=== PATIENT | female | born 1960 | race African-American/Black ===

== ENCOUNTER 2017-07-16 15:57 | Inpatient (IN) | payer BC ==
[~2017-07-16] VITALS: Ht 167.6 cm; Wt 102.1 kg
[2017-07-16 16:25] VITALS: BP 147/98; PULSE 91; RESP 19; TEMP 98; O2SAT 100
[2017-07-16] MEDS ORDERED: TIRO25CA PO (16:53)
--- NOTE | 2017-07-16 17:38 | PD ---
HPI Chief Complaint: Fall Time Seen by Provider: 17:29 Travel History International Travel<30 days: No Contact w/Intl Traveler<30days: No Traveled to known affect area: No History of Present Illness HPI 56yo F with PMH of hyperthyroidism presents to the ED with c/o left elbow pain, left knee pain, left foot pain s/p fall from an attic ladder about 3 feet high at 2:30pm today. States she got distracted and thinks her left knee may have twisted. Denies any head injury, LOC, chest pain, sob, n/v, abdominal pain, focal weakness or numbness. Not on any anticoagulations. PFSH Past Medical History Thyroid Disease: Yes (HYPER) ?: Not Past Surgical History Section: Yes (X 3) Hysterectomy: Yes Tonsillectomy: Yes Social History Alcohol Use: No Tobacco Use: No Substance Use: No Allergies-Medications (Allergen,Severity, Reaction): Coded Allergies: codeine (Verified Allergy, Unknown, 07/16/17) latex (Verified Allergy, Unknown, 07/16/17) Reported Meds & Prescriptions Reported Meds & Active Scripts Active Reported Tirosint (Levothyroxine Sodium) 25 Mcg Cap 25 Mcg PO DAILY Review of Systems Except as stated in HPI: all other systems reviewed are Neg Physical Exam Narrative GENERAL: 56yo F in moderate distress. SKIN: Focused skin assessment warm/dry. HEAD: Atraumatic. Normocephalic. CARDIOVASCULAR: Regular rate and rhythm. No murmur appreciated. RESPIRATORY: No accessory muscle use. Clear to auscultation. Breath sounds equal bilaterally. GASTROINTESTINAL: Abdomen soft, non-tender, nondistended. MUSCULOSKELETAL: LUE: FROM in left shoulder and elbow. Mild ttp left olecranon. Sensation intact. Radial pulse 2+. No scaphoid ttp. LLE: +TTP diffusely in left knee, left tib/fib and left foot. DP 2+. No open wounds. No ttp left ankle. Sensation intact. No obvious deformities. NEUROLOGICAL: Awake and alert. No obvious cranial nerve deficits. Motor grossly within normal limits. Normal speech. PSYCHIATRIC: Appropriate mood and affect; insight and judgment normal. Data Data Last Documented VS Vital Signs Date Time Temp Pulse Resp B/P (MAP) Pulse Ox O2 Delivery O2 Flow Rate FiO2 07/16/17 18:56 17 07/16/17 18:16 91 152/70 (97) 97 Room Air 07/16/17 16:25 98.0 Orders Orders Elbow, Limited (Ap&Lat) (07/16/17 ) Knee, Ltd (1 Or 2vws) (07/16/17 ) Tibia/Fibula (Ap/Lat) (07/16/17 ) Foot, Limited (2vws) (07/16/17 ) Diazepam (Valium) (07/16/17 17:45) Ibuprofen (Motrin) (07/16/17 17:45) Complete Blood Count With Diff (07/16/17 18:04) Basic Metabolic Panel (Bmp) (07/16/17 18:04) Prothrombin Time / Inr (Pt) (07/16/17 18:04) Act Partial Throm Time (Ptt) (07/16/17 18:04) Ct Knee W/O Contrast (07/16/17 ) Type And Screen (07/16/17 18:05) Morphine Inj (Morphine Inj) (07/16/17 19:15) Ct Elbow W/O Contrast (07/16/17 ) Splint Or Brace Apply/Monitor (07/16/17 19:13) Admit Order (Ed Use Only) (07/16/17 19:21) Consult Orthopedic (07/16/17 ) Labs Laboratory Tests Test 07/16/17 18:14 White Blood Count 12.2 TH/MM3 Red Blood Count 4.48 MIL/MM3 Hemoglobin 11.4 GM/DL Hematocrit 35.6 % Mean Corpuscular Volume 79.5 FL Mean Corpuscular Hemoglobin 25.6 PG Mean Corpuscular Hemoglobin Concent 32.1 % Red Cell Distribution Width 15.2 % Platelet Count 218 TH/MM3 Mean Platelet Volume 9.6 FL Neutrophils (%) (Auto) 84.4 % Lymphocytes (%) (Auto) 9.6 % Monocytes (%) (Auto) 5.7 % Eosinophils (%) (Auto) 0.1 % Basophils (%) (Auto) 0.2 % Neutrophils # (Auto) 10.2 TH/MM3 Lymphocytes # (Auto) 1.2 TH/MM3 Monocytes # (Auto) 0.7 TH/MM3 Eosinophils # (Auto) 0.0 TH/MM3 Basophils # (Auto) 0.0 TH/MM3 CBC Comment DIFF FINAL Differential Comment Prothrombin Time 10.7 SEC Prothromb Time International Ratio 1.0 RATIO Activated Partial Thromboplast Time 24.9 SEC Blood Urea Nitrogen 20 MG/DL Creatinine 1.39 MG/DL Random Glucose 156 MG/DL Calcium Level 8.8 MG/DL Sodium Level 141 MEQ/L Potassium Level 3.7 MEQ/L Chloride Level 110 MEQ/L Carbon Dioxide Level 24.0 MEQ/L Anion Gap 7 MEQ/L Estimat Glomerular Filtration Rate 47 ML/MIN MDM Medical Decision Making Medical Screen Exam Complete: Yes Emergency Medical Condition: Yes Differential Diagnosis Musculoskeletal pain vs. fracture vs. contusion Narrative Course 56yo F with left knee pain and left elbow pain s/p fall from about 3 feet on [employer] ladder today. Pt last had ice cream around 1pm. Denies any head trauma and fell on her left side. No anticoagulation. Labs reviewed, mild leukocytosis at 12.2. Creatinine mildly elevated at 1.39, no prior to compare. Pt was given valium and ibuprofen initially since she said she was allergic to codeine. However, afterwards, she said she only gets nauseous and there is no anaphylactic reaction including sob or lip or tongue swelling. Morphine 6mg IV ordered for pain. Xray of left elbow showed questionable transcondylar fracture. No joint effusion. Xray of left knee showed comminuted intra- articular fracture involving the tibial plateau with extension of fracture into the shaft of the tibia. Discussed with Dr. Nj who recommended CT left knee and elbow and admit to medicine and keep pt NPO after midnight. Ordered left long arm splint and long leg splint. Discussed with Dr. Price and accepted to her service. Diagnosis Primary Impression: Tibial plateau fracture, left Qualified Codes: S82.142A - Displaced bicondylar fracture of left tibia, initial encounter for closed fracture Admitting Information Admitting Physician Requests: Admit Sandy Sullivan DO Jul 16, 2017 17:38
[2017-07-16] MEDS ORDERED: IBUPROFEN 600 MG TAB PO ONE (17:45)
[2017-07-16] MEDS ORDERED: DIAZEPAM 5 MG TAB PO ONE (17:45)
--- NOTE | 2017-07-16 18:14 | RADRPT ---
EXAM DATE/TIME: 07/16/2017 17:59 [facility] COMPARISON: No previous studies available for comparison. INDICATIONS : Left elbow pain post fall today MEDICAL HISTORY : None. SURGICAL HISTORY : None. ENCOUNTER: Initial ACUITY: 1 day PAIN SCORE: 3/10 LOCATION: Left posterior elbow FINDINGS: 2 views left elbow reveal a linear lucency involving the distal humerus and a transcondylar fashion. No induration or distraction. The remaining bony structures are unremarkable. No large joint effusion appreciated. CONCLUSION: 1. Questionable transcondylar fracture. No joint effusion. Andrade Pope Jr., MD on July 16, 2017 at 18:11 Board Certified Radiologist. This report was verified electronically.
[2017-07-16 18:16] VITALS: BP 152/70; PULSE 91; RESP 16; O2SAT 97
--- NOTE | 2017-07-16 18:17 | RADRPT ---
EXAM DATE/TIME: 07/16/2017 17:50 [facility] COMPARISON: No previous studies available for comparison. INDICATIONS : Left foot pain post fall from attic today MEDICAL HISTORY : None. SURGICAL HISTORY : None. ENCOUNTER: Initial ACUITY: 1 day PAIN SCORE: 5/10 LOCATION: Left entire foot FINDINGS: Two view examination of the left foot demonstrates no soft tissue swelling, dislocation, or fracture. The calcaneus is intact. Bony mineralization is normal. CONCLUSION: No acute disease. Andrade Pope Jr., MD on July 16, 2017 at 18:16 Board Certified Radiologist. This report was verified electronically.
--- NOTE | 2017-07-16 18:20 | RADRPT ---
EXAM DATE/TIME: 07/16/2017 17:46 [facility] COMPARISON: No previous studies available for comparison. INDICATIONS : Left knee pain post fall from attic today MEDICAL HISTORY : None. SURGICAL HISTORY : None. ENCOUNTER: Initial ACUITY: 1 day PAIN SCORE: 10/10 LOCATION: Left entire knee FINDINGS: 2 images of the left knee are oblique in position. There is a comminuted fracture involving the proxi mal tibia. The fracture extends through both tibial plateaus. There is the suggestion of depression o f the lateral tibial plateau on the order of approximately 3-4 mm. There is mild diastases of the fra cture fragments measuring 6-7 mm. Distal femur is intact. Hemarthrosis noted. CONCLUSION: Comminuted proximal tibial fracture as detailed above. Andrade Pope Jr., MD on July 16, 2017 at 18:17 Board Certified Radiologist. This report was verified electronically.
--- NOTE | 2017-07-16 18:26 | RADRPT ---
EXAM DATE/TIME: 07/16/2017 17:47 [facility] COMPARISON: No previous studies available for comparison. INDICATIONS : Left proximal lower leg pain post fall from attic today MEDICAL HISTORY : None. SURGICAL HISTORY : None. ENCOUNTER: Initial ACUITY: 1 day PAIN SCORE: 10/10 LOCATION: Left proximal lower leg FINDINGS: Two view examination of the left tibia demonstrates prominent fracture through the articulating surfa ce of the tibia extending down into the shaft the tibia there is some displacement of the fracture fr agments. His appears to be a comminuted fracture involving the proximal tibia. There is a joint effus ion. The patella grossly intact. The distal femur is grossly intact. No joint dislocation. The distal tibia and fibula are grossly intact. CONCLUSION: Comminuted intra-articular fracture involving the tibial plateau with extension of fracture into the shaft of the tibia. Lennox Moore MD on July 16, 2017 at 18:22 Board Certified Radiologist. This report was verified electronically.
[2017-07-16 18:46] LABS: AUTOMATED NEUTROPHIL # 10.2 TH/MM3 (1.8-7.7); BASOPHIL % 0.2 % (0.0-2.0); EOSINOPHIL % 0.1 % (0.0-4.0); HEMATOCRIT 35.6 % (35.0-46.0); HEMO FLAGS DIFF FINAL; LYMPH % 9.6 % (9.0-44.0); LYMPHOCYTE # 1.2 TH/MM3 (1.0-4.8); MEAN CELL VOLUME 79.5 FL (80.0-100.0); MEAN CORPUSCULAR HEMOGLOBIN 25.6 PG (27.0-34.0); MEAN CORPUSCULAR HGB CONC 32.1 % (32.0-36.0); MONO % 5.7 % (0.0-8.0); NEUT % 84.4 % (16.0-70.0); PLATELET COUNT 218 TH/MM3 (150-450); RED BLOOD COUNT 4.48 MIL/MM3 (4.00-5.30); RED CELL DISTRIBUTION WIDTH 15.2 % (11.6-17.2); WHITE BLOOD COUNT 12.2 TH/MM3 (4.0-11.0)
[2017-07-16 18:47] LABS: APTT (PATIENT) 24.9 SEC (24.3-30.1); PROTHROMBIN TIME - PATIENT 10.7 SEC (9.8-11.6)
[2017-07-16 18:54] LABS: POTASSIUM 3.7 MEQ/L (3.5-5.1)
[2017-07-16] MEDS ORDERED: MORPHINE SULFATE 8 MG/ML INJ IV PUSH ONE (19:15)
[2017-07-16 19:26] VITALS: BP 136/82; PULSE 94; RESP 17; O2SAT 98
--- NOTE | 2017-07-16 19:27 | RADRPT ---
EXAM DATE/TIME: 07/16/2017 18:29 [facility] COMPARISON: No previous studies available for comparison. INDICATIONS : Left knee pain from fall from ladder. RADIATION DOSE: 7.30 CTDIvol (mGy) MEDICAL HISTORY : Hyperparathyroidism. SURGICAL HISTORY : Hysterectomy. ENCOUNTER: Initial ACUITY: 1 day PAIN SCALE: 10/10 LOCATION: Left knee TECHNIQUE: Volumetric scanning of the knee was performed. Using automated exposure control and adjustment of th e mA and/or kV according to patient size, radiation dose was kept as low as reasonably achievable to obtain optimal diagnostic quality images. DICOM format image data is available electronically for re view and comparison. FINDINGS: There is a severe comminuted fracture involving the articulating surfaces of the tibial plateau. This includes the medial and lateral portions of the tibial plateau. There is a fracture line that extend s into the shaft of the tibia. The fibula is grossly intact. The patella and distal femur are grossly intact. There is a moderate joint effusion. No definite joint dislocation. CONCLUSION: Severely comminuted articular fracture involving the entire tibial plateau. Lennox Moore MD on July 16, 2017 at 19:23 Board Certified Radiologist. This report was verified electronically.
[2017-07-16] MEDS ORDERED: SODIUM CHLORIDE 0.9% FLUSH 10 ML FLUSH IV FLUSH PRN (19:45)
[2017-07-16] MEDS ORDERED: NALOXONE HCL 0.4 MG/ML AMP IV PRN (19:45)
[2017-07-16] MEDS ORDERED: ACETAMINOPHEN 325 MG TAB PO PRN (19:45)
--- NOTE | 2017-07-16 20:51 | RADRPT ---
EXAM DATE/TIME: 07/16/2017 20:15 [facility] COMPARISON: No previous studies available for comparison. INDICATIONS : Trauma, fell off ladder, painful left elbow. RADIATION DOSE: 22.56 CTDIvol (mGy) MEDICAL HISTORY : Hyperparathyroidism. SURGICAL HISTORY : Hysterectomy. ENCOUNTER: Initial ACUITY: 1 day PAIN SCALE: 5/10 LOCATION: Left elbow TECHNIQUE: Volumetric scanning of the elbow was performed. Using automated exposure control and adjustment of t he mA and/or kV according to patient size, radiation dose was kept as low as reasonably achievable to obtain optimal diagnostic quality images. DICOM format image data is available electronically for r eview and comparison. FINDINGS: BONES: No evidence of fracture. Alignment is within normal limits. JOINTS: No evidence of joint narrowing or effusion. SOFT TISSUES: Muscles, tendons and neurovascular structures are grossly unremarkable. There is some mild soft tissu e swelling or edema posteriorly near the triceps insertion. CONCLUSION: 1. No acute fracture or dislocation. Soft tissue swelling and edema posteriorly in the olecranon ivette on near the triceps insertion. Felix Buckner MD on July 16, 2017 at 20:46 Board Certified Radiologist. This report was verified electronically.
[2017-07-16] MEDS: SODIUM CHLORIDE 0.9% FLUSH 10 ML FLUSH IV FLUSH SCH (21:26)
[2017-07-16 21:40] VITALS: BP 151/80; PULSE 89; RESP 17; TEMP 99.5; O2SAT 100
[2017-07-17 00:45] VITALS: BP 112/78; PULSE 114; RESP 17; TEMP 98.7; O2SAT 98
[2017-07-17] MEDS ORDERED: INSULIN HUMAN REGULAR 1,000 UNITS/10 ML VIAL SQ PRN (00:45)
[2017-07-17] MEDS ORDERED: POVIDONE IODINE 5% (ANTISEPSIS KIT) 4 APPLICATIONS EACH NARE PRN (00:45)
[2017-07-17] MEDS ORDERED: CHLORHEXIDINE GLUCONATE 2 % 1 PACK (2 CLOTHS) TOPICAL PRN (00:45)
[2017-07-17] MEDS ORDERED: LACTATED RINGER'S 1000 ML IV PRN (00:45)
[2017-07-17] MEDS: MORPHINE SULFATE 4 MG/ML INJ IV PUSH PRN ×2 (01:18→06:09)
--- NOTE | 2017-07-17 02:09 | HHI.HP ---
HPI Service [facility] Primary Care Physician No Primary Care Physician Admission Diagnosis Tibial plateau fracture Diagnoses: (1) Tibial plateau fracture, left (2) Leukocytosis (3) Acute renal insufficiency Chief Complaint: Fell off a ladder with severe left leg pain Travel History International Travel<30 Days: No Contact w/Intl Traveler <30 Da: No Traveled to Known Affected Are: No History of Present Illness Written by Polina Pereyra, acting as scribe for Dr. Price on 07/17/17 at 02:09. She was cleaning out her parents' place, coming out of the attic, and got scared by something while on the third rung down on a ladder, her foot got stuck on the rung, and she fell. She had severe left knee, foot, and elbow pain following fall. She is here visiting from [place]. She denies any dizziness, syncope, chest pain, or shortness of breath prior to fall. Denies fever, nausea, vomiting, diarrhea, chest pain, sob, syncope, dysuria, hematuria, bloody stools, or black stools over the past few weeks. Review of Systems Except as stated in HPI: all other systems reviewed are Neg Past Family Social History Past Medical History Borderline hypothyroid Denies diabetes, hypertension, CAD, respiratory problems, atrial fibrillation, CHF, liver problems, kidney problems, DVT, PE, CVA, seizures, or cancers . Past Surgical History C sections x 3 Tonsillectomy Hysterectomy Bunionectomy . Reported Medications Reported Meds & Active Scripts Active Reported Tirosint (Levothyroxine Sodium) 25 Mcg Cap 25 Mcg PO DAILY Allergies: Coded Allergies: codeine (Verified Allergy, Unknown, 07/16/17) latex (Verified Allergy, Unknown, 07/16/17) Active Ordered Medications Current Medications Diazepam (Valium) 5 mg ONCE ONCE PO Last administered on 07/16/17 17:40; Start 07/16/17 at 17:45; Stop 07/16/17 at 17:46; Status DC Ibuprofen (Motrin) 600 mg ONCE ONCE PO Last administered on 07/16/17 17:40; Start 07/16/17 at 17:45; Stop 07/16/17 at 17:46; Status DC Morphine Sulfate (Morphine Inj) 6 mg ONCE ONCE IV PUSH Last administered on 19:35; Start 07/16/17 at 19:15; Stop 07/16/17 at 19:16; Status DC Sodium Chloride (NS Flush) 2 ml UNSCH PRN IV FLUSH FLUSH AFTER USING IV ACCESS ; Start 07/16/17 at 19:45 Sodium Chloride (NS Flush) 2 ml BID IV FLUSH Last administered on 07/16/17 21: 26; Start 07/16/17 at 21:00 Acetaminophen (Tylenol) 650 mg Q4H PRN PO TEMP > 100.4 Last administered on 23:05; Start 07/16/17 at 19:45 Ondansetron HCl (Zofran Inj) 4 mg Q6H PRN IVP NAUSEA OR VOMITING; Start at 19:45 Naloxone HCl (Narcan Inj) 0.4 mg UNSCH PRN IV SEE LABEL COMMENTS; Start at 19:45 Morphine Sulfate (Morphine Inj) 3 mg Q3H PRN IV PUSH pain 5 - 10 Last administered on 07/17/17 01:18; Start 07/17/17 at 00:30 Lactated Ringer's 1,000 ml @ 30 mls/hr Q24H PRN IV SEE LABEL COMMENTS; Start at 00:45; Stop 07/20/17 at 00:44 Povidone Iodine (Betadine 5% Antisepsis Kit) 1 applic ATTENDING PSYCHIATRIST PRN EACH NARE SEE LABEL COMMENTS; Start 07/17/17 at 00:45; Stop 07/20/17 at 00:44 Chlorhexidine Gluconate (Chlorhexidine 2% Cloth) 3 pack ATTENDING PSYCHIATRIST PRN TOPICAL SEE LABEL COMMENTS; Start 07/17/17 at 00:45; Stop 07/20/17 at 00:44 Insulin Human Regular (NovoLIN R INJ) See Protocol Table ... ATTENDING PSYCHIATRIST PRN SQ SEE PROTOCOL TABLE; Start 07/17/17 at 00:45; Stop 07/20/17 at 00:44 Family History Maternal grandfather with colon CA Paternal grandfather with bone CA Father with prostate CA, renal carcinoma . Social History Tobacco: denies Alcohol: denies Illicit Drugs: denies . Physical Exam Vital Signs Vital Signs Date Time Temp Pulse Resp B/P (MAP) Pulse Ox O2 Delivery O2 Flow Rate FiO2 07/17/17 01:31 17 07/17/17 00:08 17 07/16/17 21:40 99.5 89 17 151/80 (103) 100 07/16/17 21:39 07/16/17 19:45 18 07/16/17 19:26 94 17 136/82 (100) 98 Room Air 07/16/17 18:56 17 07/16/17 18:16 91 16 152/70 (97) 97 Room Air 07/16/17 16:25 98.0 91 19 147/98 (114) 100 Physical Exam GENERAL: This is a pleasant female patient, in no apparent distress. SKIN: No rashes, ecchymoses or lesions. Cool and dry. HEAD: Atraumatic. Normocephalic. EYES: Pupils equal round and reactive. No injection or drainage. ENT: Nose without bleeding, purulent drainage. Airway patent. NECK: Trachea midline. No JVD or lymphadenopathy. CARDIOVASCULAR: Regular rate and rhythm without murmurs, gallops, or rubs. RESPIRATORY: Clear to auscultation. Breath sounds equal bilaterally. No wheezes , rales, or rhonchi. GASTROINTESTINAL: Abdomen soft, non-tender, nondistended. No hepato-splenomegaly , or palpable masses. No guarding. MUSCULOSKELETAL: Extremities without clubbing, cyanosis. No calf tenderness. Left leg in splint - extremity normal temp. NEUROLOGICAL: Awake and alert. Normal speech. Laboratory Laboratory Tests Test 07/16/17 18:14 White Blood Count 12.2 Red Blood Count 4.48 Hemoglobin 11.4 Hematocrit 35.6 Mean Corpuscular Volume 79.5 Mean Corpuscular Hemoglobin 25.6 Mean Corpuscular Hemoglobin Concent 32.1 Red Cell Distribution Width 15.2 Platelet Count 218 Mean Platelet Volume 9.6 Neutrophils (%) (Auto) 84.4 Lymphocytes (%) (Auto) 9.6 Monocytes (%) (Auto) 5.7 Eosinophils (%) (Auto) 0.1 Basophils (%) (Auto) 0.2 Neutrophils # (Auto) 10.2 Lymphocytes # (Auto) 1.2 Monocytes # (Auto) 0.7 Eosinophils # (Auto) 0.0 Basophils # (Auto) 0.0 CBC Comment DIFF FINAL Differential Comment Prothrombin Time 10.7 Prothromb Time International Ratio 1.0 Activated Partial Thromboplast Time 24.9 Blood Urea Nitrogen 20 Creatinine 1.39 Random Glucose 156 Calcium Level 8.8 Sodium Level 141 Potassium Level 3.7 Chloride Level 110 Carbon Dioxide Level 24.0 Anion Gap 7 Estimat Glomerular Filtration Rate 47 Result Diagram: 07/16/17181307/16/174 Imaging Last Impressions Upper Extremity CT 07/16/17 0000 Signed Impressions: Service Date/Time: Sunday, July 16, 2017 20:15 - CONCLUSION: 1. No acute fracture or dislocation. Soft tissue swelling and edema posteriorly in the olecranon region near the triceps insertion. Felix Buckner MD Tibia/Fibula X-Ray 07/16/17 0000 Signed Impressions: Service Date/Time: Sunday, July 16, 2017 17:47 - CONCLUSION: Comminuted intra-articular fracture involving the tibial plateau with extension of fracture into the shaft of the tibia. Lennox Moore MD Lower Extremity CT 07/16/17 0000 Signed Impressions: Service Date/Time: Sunday, July 16, 2017 18:29 - CONCLUSION: Severely comminuted articular fracture involving the entire tibial plateau. Lennox Moore MD Knee X-Ray 07/16/17 0000 Signed Impressions: Service Date/Time: Sunday, July 16, 2017 17:46 - CONCLUSION: Comminuted proximal tibial fracture as detailed above. Andrade Pope Jr., MD Foot X-Ray 07/16/17 0000 Signed Impressions: Service Date/Time: Sunday, July 16, 2017 17:50 - CONCLUSION: No acute disease. Andrade Pope Jr., MD Elbow X-Ray 07/16/17 0000 Signed Impressions: Service Date/Time: Sunday, July 16, 2017 17:59 - CONCLUSION: 1. Questionable transcondylar fracture. No joint effusion. Andrade Pope Jr., MD . Caprini VTE Risk Assessment Caprini VTE Risk Assessment: Mod/High Risk (score >= 2) VTE Pharm Contraindication: pending surgery Caprini Risk Assessment Model Point Value = 1 Point Value = 2 Point Value = 3 Point Value = 5 Age 41-60 Minor surgery BMI > 25 kg/m2 Swollen legs Varicose veins or History of unexplained or recurrent spontaneous Oral contraceptives or hormone replacement Sepsis (< 1 month) Serious lung disease, including pneumonia (< 1 month) Abnormal pulmonary function Acute myocardial infarction Congestive heart failure (< 1 month) History of inflammatory bowel disease Medical patient at bed rest Age 61-74 Arthroscopic surgery Major open surgery (> 45 min) Laparoscopic surgery (> 45 min) Malignancy Confined to bed (> 72 hours) Immobilizing plaster cast Central venous access Age >= 75 History of VTE Family history of VTE Factor V Leiden Prothrombin [id number] Lupus anticoagulant Anticardiolipin antibodies Elevated serum homocysteine Heparin-induced thrombocytopenia Other congenital or acquired thrombophilia Stroke (< 1 month) Elective arthroplasty Hip, pelvis, or leg fracture Acute spinal cord injury (< 1 month) Prophylaxis Regimen Total Risk Factor Score Risk Level Prophylaxis Regimen 0-1 Low Early ambulation 2 Moderate Order ONE of the following: *Sequential Compression Device (SCD) *Heparin 5000 units SQ BID 3-4 Higher Order ONE of the following medications: *Heparin 5000 units SQ TID *Enoxaparin/Lovenox 40 mg SQ daily (WT < 150 kg, CrCl > 30 mL/min) *Enoxaparin/Lovenox 30 mg SQ daily (WT < 150 kg, CrCl > 10-29 mL/min) *Enoxaparin/Lovenox 30 mg SQ BID (WT < 150 kg, CrCl > 30 mL/min) AND/OR *Sequential Compression Device (SCD) 5 or more Highest Order ONE of the following medications: *Heparin 5000 units SQ TID (Preferred with Epidurals) *Enoxaparin/Lovenox 40 mg SQ daily (WT < 150 kg, CrCl > 30 mL/min) *Enoxaparin/Lovenox 30 mg SQ daily (WT < 150 kg, CrCl > 10-29 mL/min) *Enoxaparin/Lovenox 30 mg SQ BID (WT < 150 kg, CrCl > 30 mL/min) AND *Sequential Compression Device (SCD) Assessment and Plan Problem List: (1) Tibial plateau fracture, left ICD Code: S82.142A - Displaced bicondylar fracture of left tibia, initial encounter for closed fracture Status: Acute (2) Acute renal insufficiency ICD Code: N28.9 - Disorder of kidney and ureter, unspecified (3) Leukocytosis ICD Code: D72.829 - Elevated white blood cell count, unspecified Assessment and Plan Left tibial plateau fracture - Morphine 3 mg IV q3h PRN pain 5 - 10 - NPO for surgery 07/17 Acute renal insufficiency - BUN 20, creatinine - 1.39, and eGFR - 47 - no prior labs for comparison but patient denies CKD - will provide hydration with NS at 100 cc/hr - recheck bmp in a.m. and follow renal indices - avoid nephrotoxins Leukocytosis - WBC 12.2 with neutrophilia - suspect secondary to stress - recheck CBC in a.m. and follow results DVT prophylaxis - SCD/PHILIP right leg This note was transcribed by raul [Polina Pereyra]. I, Dr. Chris Price personally performed the history, physical exam, and medical decision making; and confirmed the accuracy of the information in the transcribed note. Authenticated by Dr. Chris Price on 07/17/17 at 02:09. Discussed Condition With ER physician and patient Physician Certification 2 Midnight Certification Type: Admission for Inpatient Services Order for Inpatient Services The services are ordered in accordance with Medicare regulations or non- Medicare payer requirements, as applicable. In the case of services not specified as inpatient-only, they are appropriately provided as inpatient services in accordance with the 2-midnight benchmark. Estimated LOS (days): 3 days is the estimated time the patient will need to remain in the hospital, assuming treatment plan goals are met and no additional complications. Post-Hospital Plan: Home Problem Qualifiers (1) Tibial plateau fracture, left: Qualified Codes: S82.142A - Displaced bicondylar fracture of left tibia, initial encounter for closed fracture Polina Pereyra Jul 17, 2017 02:09 Chris Price MD Jul 17, 2017 03:19
[2017-07-17] MEDS ORDERED: SODIUM CHLOR 0.9% 1000 ML INJ 1,000 ML IV SCH (03:15)
[2017-07-17 04:40] VITALS: BP 114/69; PULSE 94; RESP 16; TEMP 98; O2SAT 98
[2017-07-17 06:47] LABS: AUTOMATED NEUTROPHIL # 5.3 TH/MM3 (1.8-7.7); BASOPHIL % 0.4 % (0.0-2.0); EOSINOPHIL # 0.1 TH/MM3 (0-0.4); EOSINOPHIL % 0.9 % (0.0-4.0); HEMATOCRIT 33.6 % (35.0-46.0); HEMO FLAGS DIFF FINAL; LYMPH % 26.6 % (9.0-44.0); LYMPHOCYTE # 2.3 TH/MM3 (1.0-4.8); MEAN CELL VOLUME 79.6 FL (80.0-100.0); MEAN CORPUSCULAR HEMOGLOBIN 26.3 PG (27.0-34.0); MEAN CORPUSCULAR HGB CONC 33.1 % (32.0-36.0); MONO % 9.6 % (0.0-8.0); NEUT % 62.5 % (16.0-70.0); PLATELET COUNT 190 TH/MM3 (150-450); RED BLOOD COUNT 4.22 MIL/MM3 (4.00-5.30); WHITE BLOOD COUNT 8.5 TH/MM3 (4.0-11.0)
--- NOTE | 2017-07-17 06:58 | PD.ORT.PN ---
Subjective Subjective Remarks s/p fall of ladder at home. left knee pain. no other complaints. Objective Vitals Vital Signs Date Time Temp Pulse Resp B/P (MAP) Pulse Ox O2 Delivery O2 Flow Rate FiO2 07/17/17 06:12 18 07/17/17 04:40 98.0 94 16 114/69 (84) 98 07/17/17 03:10 Room Air 07/17/17 00:45 98.7 114 17 112/78 (89) 98 07/17/17 00:08 17 07/16/17 21:40 99.5 89 17 151/80 (103) 100 07/16/17 21:39 07/16/17 19:45 18 07/16/17 19:26 94 17 136/82 (100) 98 Room Air 07/16/17 18:56 17 07/16/17 18:16 91 16 152/70 (97) 97 Room Air 07/16/17 16:25 98.0 91 19 147/98 (114) 100 I/O 07/16/17 07/16/17 07/16/17 07/17/17 07/17/17 07/17/17 07:00 15:00 23:00 07:00 15:00 23:00 Intake Total 240 ml Output Total 350 ml Balance -110 ml Intake Oral 240 ml Output Urine Total 350 ml # Bowel Movements 0 Result Diagram: 07/17/17 0527 07/16/17 1814 Other Results Laboratory Tests Test 07/16/17 18:14 Prothromb Time International Ratio 1.0 RATIO Prothrombin Time 10.7 SEC (9.8-11.6) Objective Remarks LLE: 3+ swelling of lower leg/knee. full sensation distally with good movement of toes. +cap refill Assessment & Plan Assessment and Plan 1) Left Tibial Plateau Fx -npo -consents -surgery today for exfix and possible fasciotomy Dustin Fuller Jul 17, 2017 06:58
[2017-07-17 07:06] LABS: BICARBONATE 25.5 MEQ/L (21.0-32.0); POTASSIUM 3.9 MEQ/L (3.5-5.1)
[2017-07-17 07:30] VITALS: BP 141/76; PULSE 91; RESP 16; TEMP 98.6; O2SAT 100
[2017-07-17] MEDS: SODIUM CHLORIDE 0.9% FLUSH 10 ML FLUSH IV FLUSH SCH ×2 (07:44→19:54)
[2017-07-17] MEDS ORDERED: MIDAZOLAM HCL 2 MG/2 ML VIAL ONE (07:52)
[2017-07-17] MEDS ORDERED: DEXAMETHASONE SOD PHOS 4 MG/ML VIAL ONE (07:52)
[2017-07-17] MEDS ORDERED: FAMOTIDINE 20 MG/2 ML VIAL ONE (07:52)
[2017-07-17] MEDS ORDERED: VANCOMYCIN HCL 1000 MG VIAL ONE (09:40)
[2017-07-17] MEDS ORDERED: ceFAZolin 2 GM PREMIX 50 ML ONE (09:40)
[2017-07-17] MEDS ORDERED: GENTAMICIN SULFATE 80 MG/2 ML VIAL ONE (09:40)
[2017-07-17] MEDS ORDERED: SODIUM CHLOR 0.9% 250 ML INJ 250 ML ONE (09:40)
[2017-07-17] MEDS: LACTATED RINGER'S 1000 ML INJ 1,000 ML IV SCH ×2 (10:10→19:50)
[2017-07-17] MEDS ORDERED: MORPHINE SULFATE 4 MG/ML INJ IV PUSH PRN (10:15)
[2017-07-17] MEDS ORDERED: SODIUM CHLORIDE 0.9% FLUSH 5 ML FLUSH IVF PRN (10:15)
--- NOTE | 2017-07-17 10:17 | PD.OP ---
cc: Shawn Sams MD Operative Report Date of Surgery: Jul 17, 2017 Preoperative Diagnosis: Bicondylar left tibial plateau fracture Postoperative Diagnosis: Procedure: Compartment pressure checks left calf, closed reduction with manipulation left tibial plateau, external fixation left leg Surgeon: Shawn Sams Tank Driver(s): Reynaldo Fuller PA-C The surgical procedure was assisted by my physician blood bank assistant. My P.A. presence was necessary throughout this case for the manipulation and positioning of the surgical extremity. My P.A. was assisting me throughout the duration of this procedure. The skill set of a physician blood bank assistant was medically necessary to complete this procedure. During the surgical case the surgical services assistant was working at the back table and the physician blood bank assistant was directly assisting me. Operation and Findings: This patient sustained an injury resulting in comminuted fractures of [left tibial plateau]. Patient was seen and evaluated preoperatively and found to have too much swelling to proceed with open reduction internal fixation. Risk and benefits of surgery were discussed in depth with patient and informed consent was confirmed. Surgical site was marked. Patient was brought to operating room and placed on the OR table. Patient was given IV sedation and GETA. Patient received IV antibiotics and timeout procedure was performed. Procedure began with compartment pressure checks. Skin was prepped with alcohol and DuraPrep. Using the [employer] compartment pressure monitoring system the anterior and lateral compartments were checked. Compartment pressures were 16 and 14 respectively. Operative leg was prepped with alcohol followed by Carlotaiclens and draped in the usual sterile fashion. Two small incisions were made along the anterior femur and the tibia. Soft tissue was dissected bluntly. Cannulas were placed down to the cortex of bone. Pin sites were predrilled. Synthes ESCOBAR-coated pins were placed into the femur and tibia. Fluoroscopy was used to confirm appropriate pin placement. An external fixator construct was now created with clamps and bars. Next attention was turned to reduction. Traction was applied. Fracture was manipulated. Good alignment of the fracture was obtained. Fluoroscopy was used to confirm appropriate alignment of fracture. The external fixator was now tightened to hold reduction. Sterile dressings were applied. Patient was awakened and transferred to recovery room in stable condition. The soft tissue was reevaluated. Patient did have swelling around the knee and calf but compartments were soft and compressible with no signs of compartment syndrome. Shawn Sams MD Jul 17, 2017 10:17
[2017-07-17] MEDS ORDERED: Post-op Orders (for Pharmacy) MISC XX ONE (10:21)
[2017-07-17] MEDS ORDERED: DO NOT ADM ANY ANTICOAGULANT DRUGS PRN (10:28)
[2017-07-17] MEDS ORDERED: fentaNYL CITRATE 250 MCG/5 ML AMP ONE (10:38)
[2017-07-17] MEDS ORDERED: *MEPERIDINE 25 MG INJ VIAL PERIprocedural Use ONLY ONE (10:48)
--- NOTE | 2017-07-17 10:48 | RADRPT ---
EXAM DATE/TIME: 07/17/2017 10:07 [facility] COMPARISON: KNEE LEFT LTD (1 OR 2VWS), July 16, 2017, 17:46. INDICATIONS : Ex-fix left knee. MEDICAL HISTORY : None. SURGICAL HISTORY : None. ENCOUNTER: Subsequent ACUITY: 1 day PAIN SCORE: Non-responsive. LOCATION: Left knee FINDINGS: Intra-articular proximal lateral tibial plateau fracture is seen and grossly aligned. CONCLUSION: Gross anatomical alignment. Hussein Santana MD on July 17, 2017 at 10:37 Board Certified Radiologist. This report was verified electronically.
--- NOTE | 2017-07-17 11:08 | EKG ---
Date Performed: 07/17/2017 Time Performed: 05:23:50 PTAGE: 56 years EKG: Sinus rhythm . Poor R wave progression - probable normal variant Inferior T wave changes are nonspecific [place] e ECG NO PREVIOUS TRACING DOCTOR: Elkin Piña Interpretating Date/Time 07/17/2017 11:07:10
[2017-07-17 12:00] VITALS: BP 143/81; PULSE 92; RESP 16; TEMP 97.2; O2SAT 99
[2017-07-17] MEDS ORDERED: PHENYLEPH/NS 1000 MCG/10 ML SYR IV ONE (12:00)
[2017-07-17] MEDS ORDERED: ONDANSETRON HCL 4 MG/2 ML VIAL IV PUSH ONE (12:00)
[2017-07-17] MEDS ORDERED: LACTATED RINGER'S 1000 ML INJ 1,000 ML IV ONE (12:00)
[2017-07-17] MEDS ORDERED: PROPOFOL 200 MG/20 ML AMP IV ONE (12:00)
[2017-07-17] MEDS: ACETAMINOPHEN/HYDROcodone 325 MG/10 MG TAB PO PRN ×3 (12:08→22:07)
[2017-07-17] MEDS: diphenhydrAMINE HCL 25 MG CAP PO PRN (12:09)
--- NOTE | 2017-07-17 12:48 | MB ---
cc: YURI SALGADO DATE OF ADMISSION 07/16/2017 DATE OF CONSULTATION 07/17/2017 REASON FOR CONSULTATION Comminuted left tibial plateau fracture. CONSULTING PHYSICIAN Dr. Price. HISTORY Juan Daniel is a 56-year-old female who was on a ladder. She was helping to clean items out of an attic. She was coming down the ladder. She fell from the third rung of the ladder. He had immediate right knee pain. She initially had some mild elbow pain. She is here visiting from [place]. She presented to the emergency room with severe left knee pain. X-rays reveal a comminuted left tibial plateau fracture. She is currently awake and alert on the orthopedic floor. Her main complaint is her left knee. Her left elbow pain has mostly resolved. She denies any dizziness, syncope or loss of consciousness. The pain is worse with movement and is improved with rest. PAST MEDICAL HISTORY ILLNESSES Hypothyroidism. SURGERIES 1. . 2. Tonsillectomy. 3. Hysterectomy. 4. Bunionectomy. CURRENT MEDICATIONS Levothyroxine. ALLERGIES CODEINE. LASIX. SOCIAL HISTORY The patient lives in [place]. She denies alcohol, tobacco or drug use. FAMILY HISTORY Positive for colon cancer in her grandfather, prostate cancer in her father and a bone cancer in her paternal grandfather. REVIEW OF SYSTEMS The patient denies headache, visual changes, neck pain, chest pain, shortness of breath, abdominal pain, nausea, vomiting or recent weight loss. She complains of left knee pain. The pain is worse with movement. She does have some soreness around her left elbow as well. PHYSICAL EXAMINATION GENERAL: The patient is a well-developed, well-nourished 56-year-old female in no acute distress. She is awake and alert. She is alert and oriented x 3. VITAL SIGNS: Temperature 98.3, pulse 89, respirations 14, blood pressure 140/72, O2 sat 100% on FIO2 at 2 liters. HEAD: The patient is normocephalic. Pupils are equal. NECK: Soft, nontender. Trachea is midline. ABDOMEN: Soft, nontender, nondistended. EXTREMITIES: Examination of bilateral upper extremities reveals minimal pain with shoulder, elbow and wrist motion. She has intact sensation in all fingers. She has good capillary refill in all fingers. Skin is intact to both hands. Radial pulses palpable. Sensation intact in all fingers. Examination of right leg reveals no pain with hip, knee or ankle motion. Skin is intact. Dorsalis pedis and dorsalis pedis pulse palpable. Sensation is intact. Examination of left leg reveals minimal pain around her hip or ankle. Sensation is intact to the left foot. Dorsalis pedis pulse is palpable. She has moderate swelling around the knee. She also has moderate swelling of the left calf. She has minimal pain with passive range of motion of her toes or ankles. Skin is intact. X-RAYS X-rays and CT scan of left knee were reviewed. X-rays revealed a comminuted bicondylar left tibial plateau fracture. IMPRESSION Comminuted bicondylar left tibial plateau fracture. PLAN The treatment options were discussed with the patient. At this point I would recommend a staged procedure. I would recommend closed reduction and external fixation of the left leg first. I also plan on compartment pressure checks to ensure that she does not have a compartment syndrome. Clinically she does have significant swelling but does not appear to have signs of compartment syndrome at this time. If her swelling increases, she will likely need a fasciotomy. The risks of surgery include bleeding, infection, injury to arteries, nerves and blood vessels, compartment syndrome, need for fasciotomy as well as medical complications including blood clot, stroke, heart attack and were discussed. She understands that she will need an additional surgery for open reduction, internal fixation of fracture once the swelling has improved. All questions were answered. A mid-level provider in my office, nurse practitioner or PA, may see this patient on a follow-up basis and continue to implement the objective of this plan including: Starting or adjusting medications, injections of muscle, tendon, bursa or joints, cast application, orthotic or brace application, physical therapy, further radiographic studies including x-ray, MRI, CT, ultrasounds or bone scan, vascular studies, neurologic studies, or other specialist consultations, and proceeding with surgical management as appropriate. MD IVY Gilmore/FRANC /11:51 AM /12:33 PM
--- NOTE | 2017-07-17 13:30 | HHI.PR ---
Subjective Remarks Follow-up left tibial plateau fracture 07/17/17-patient seen and examined, patient is status post Compartment pressure checks left calf, closed reduction with manipulation left tibial plateau, external fixation left leg Objective Vitals Vital Signs Date Time Temp Pulse Resp B/P (MAP) Pulse Ox O2 Delivery O2 Flow Rate FiO2 07/17/17 11:15 98.3 89 14 140/72 (94) 100 Nasal Cannula 2 07/17/17 11:00 89 14 149/79 (102) 97 Nasal Cannula 3 07/17/17 10:45 88 19 142/76 (98) 100 Nasal Cannula 3 07/17/17 10:30 88 10 137/77 (97) 99 Nasal Cannula 3 07/17/17 10:28 98.6 87 10 130/70 (90) 99 Nasal Cannula 3 07/17/17 07:30 98.6 91 16 141/76 (97) 100 07/17/17 06:12 18 07/17/17 04:40 98.0 94 16 114/69 (84) 98 07/17/17 03:10 Room Air 07/17/17 00:45 98.7 114 17 112/78 (89) 98 07/17/17 00:08 17 07/16/17 21:40 99.5 89 17 151/80 (103) 100 07/16/17 21:39 07/16/17 19:45 18 07/16/17 19:26 94 17 136/82 (100) 98 Room Air 07/16/17 18:56 17 07/16/17 18:16 91 16 152/70 (97) 97 Room Air 07/16/17 16:25 98.0 91 19 147/98 (114) 100 I/O 07/16/17 07/16/17 07/16/17 07/17/17 07/17/17 07/17/17 07:00 15:00 23:00 07:00 15:00 23:00 Intake Total 240 ml 1100 ml Output Total 350 ml 850 ml Balance -110 ml 250 ml Intake Oral 240 ml 0 ml IV Total 250 ml Other 850 ml Output Urine Total 350 ml Estimated Blood Loss 850 ml # Voids 1 1 # Bowel Movements 0 Result Diagram: 07/17/17 0527 07/17/17 0527 Imaging Last Impressions Knee X-Ray 07/17/17 0000 Signed Impressions: Service Date/Time: June 10:07 - CONCLUSION: Gross anatomical alignment. KDaniele Santana MD Upper Extremity CT 07/16/17 0000 Signed Impressions: Service Date/Time: Sunday, July 16, 2017 20:15 - CONCLUSION: 1. No acute fracture or dislocation. Soft tissue swelling and edema posteriorly in the olecranon region near the triceps insertion. Felix Buckner MD Tibia/Fibula X-Ray 07/16/17 0000 Signed Impressions: Service Date/Time: Sunday, July 16, 2017 17:47 - CONCLUSION: Comminuted intra-articular fracture involving the tibial plateau with extension of fracture into the shaft of the tibia. Lennox Moore MD Lower Extremity CT 07/16/17 0000 Signed Impressions: Service Date/Time: Sunday, July 16, 2017 18:29 - CONCLUSION: Severely comminuted articular fracture involving the entire tibial plateau. Lennox Moore MD Foot X-Ray 07/16/17 0000 Signed Impressions: Service Date/Time: Sunday, July 16, 2017 17:50 - CONCLUSION: No acute disease. Andrade Pope Jr., MD Elbow X-Ray 07/16/17 0000 Signed Impressions: Service Date/Time: Sunday, July 16, 2017 17:59 - CONCLUSION: 1. Questionable transcondylar fracture. No joint effusion. Andrade Pope Jr., MD Objective Remarks GENERAL: NAD SKIN: Warm and dry. HEAD: Normocephalic. EYES: No scleral icterus. No injection or drainage. NECK: Supple, trachea midline. No JVD or lymphadenopathy. CARDIOVASCULAR: Regular rate and rhythm without murmurs, gallops, or rubs. RESPIRATORY: Breath sounds equal bilaterally. No accessory muscle use. GASTROINTESTINAL: Abdomen soft, non-tender, nondistended. MUSCULOSKELETAL: No cyanosis, or edema. Dressing over left foot BACK: Nontender without obvious deformity. No CVA tenderness. A/P Problem List: (1) Tibial plateau fracture, left ICD Code: S82.142A - Displaced bicondylar fracture of left tibia, initial encounter for closed fracture Status: Acute (2) Acute renal insufficiency ICD Code: N28.9 - Disorder of kidney and ureter, unspecified (3) Leukocytosis ICD Code: D72.829 - Elevated white blood cell count, unspecified Assessment and Plan Left tibial plateau fracture -Status post Compartment pressure checks left calf, closed reduction with manipulation left tibial plateau, external fixation left leg 07/17/17 - Management per orthopedic surgery -PT consult to treat and eval -Pain management accordingly Acute renal insufficiency - Improving with gentle IV fluid hydration - avoid nephrotoxins Leukocytosis - suspect secondary to stress DVT prophylaxis - Lovenox Problem Qualifiers (1) Tibial plateau fracture, left: Qualified Codes: S82.142A - Displaced bicondylar fracture of left tibia, initial encounter for closed fracture Dandre South MD Jul 17, 2017 13:30
[2017-07-17] MEDS: KETOROLAC TROMETHAMINE 30 MG/ML (IVP) VIAL IVP SCH ×2 (14:55→22:04)
[2017-07-17 16:00] VITALS: BP 158/72; PULSE 93; RESP 16; TEMP 98; O2SAT 96
[2017-07-17] MEDS: DOCUSATE SODIUM 50 MG/SENNA 8.6 MG TAB PO SCH (19:54)
[2017-07-17 20:50] VITALS: BP 146/84; PULSE 105; RESP 16; TEMP 98.8; O2SAT 99
[2017-07-18] VITALS (7 sets, daily range): BP systolic 116–142; BP diastolic 64–94; PULSE 83–101; RESP 16–18; TEMP 97.7–99; O2SAT 95–98
[2017-07-18] MEDS: ACETAMINOPHEN/HYDROcodone 325 MG/10 MG TAB PO PRN ×4 (04:08→17:56)
[2017-07-18] MEDS: KETOROLAC TROMETHAMINE 30 MG/ML (IVP) VIAL IVP SCH ×3 (04:09→21:09)
[2017-07-18] MEDS: MAGNESIUM HYDROXIDE SUSP 30 ML CUP PO PRN ×2 (04:09→19:46)
--- NOTE | 2017-07-18 07:00 | PD.ORT.PN ---
Subjective Subjective Remarks POD 1 s/p application of exfix left tibial plateau fx -doing well. pain controlled. resting comfortably Objective Vitals Vital Signs Date Time Temp Pulse Resp B/P (MAP) Pulse Ox O2 Delivery O2 Flow Rate FiO2 07/18/17 00:50 98.9 101 16 116/64 (81) 95 07/17/17 20:50 98.8 105 16 146/84 (104) 99 07/17/17 16:00 98.0 93 16 158/72 (100) 96 07/17/17 12:00 97.2 92 16 143/81 (101) 99 07/17/17 11:15 98.3 89 14 140/72 (94) 100 Nasal Cannula 2 07/17/17 11:00 89 14 149/79 (102) 97 Nasal Cannula 3 07/17/17 10:45 88 19 142/76 (98) 100 Nasal Cannula 3 07/17/17 10:30 88 10 137/77 (97) 99 Nasal Cannula 3 07/17/17 10:28 98.6 87 10 130/70 (90) 99 Nasal Cannula 3 07/17/17 07:30 98.6 91 16 141/76 (97) 100 I/O 07/17/17 07/17/17 07/17/17 07/18/17 07/18/17 07/18/17 07:00 15:00 23:00 07:00 15:00 23:00 Intake Total 240 ml 1590 ml 720 ml Output Total 350 ml 850 ml Balance -110 ml 740 ml 720 ml Intake Oral 240 ml 240 ml 720 ml IV Total 500 ml Other 850 ml Output Urine Total 350 ml Estimated Blood Loss 850 ml # Voids 1 5 2 # Bowel Movements 0 0 0 Result Diagram: 07/17/1727 07/17/17526 Objective Remarks LLE: 3+ swelling of lower leg/knee. full sensation distally with good movement of toes. +cap refill. +exfix and pin sites clean Assessment & Plan Assessment and Plan 1) Left Tibial Plateau Fx s/p exfix - POD 1 -regular diet -elevate and ice leg -pin care BID -NWB -will re-evaluate swelling friday AM - NPO after MN friday -hold lovenox after Friday AM dose Dustin Fuller Jul 18, 2017 07:00
[2017-07-18 07:18] LABS: AUTOMATED NEUTROPHIL # 6.4 TH/MM3 (1.8-7.7); BASOPHIL % 0.4 % (0.0-2.0); EOSINOPHIL # 0.1 TH/MM3 (0-0.4); EOSINOPHIL % 0.8 % (0.0-4.0); HEMATOCRIT 32.1 % (35.0-46.0); HEMO FLAGS DIFF FINAL; LYMPH % 18.1 % (9.0-44.0); LYMPHOCYTE # 1.6 TH/MM3 (1.0-4.8); MEAN CELL VOLUME 80.1 FL (80.0-100.0); MEAN CORPUSCULAR HEMOGLOBIN 25.9 PG (27.0-34.0); MEAN CORPUSCULAR HGB CONC 32.4 % (32.0-36.0); MONO % 9.6 % (0.0-8.0); NEUT % 71.1 % (16.0-70.0); PLATELET COUNT 164 TH/MM3 (150-450); RED CELL DISTRIBUTION WIDTH 15.1 % (11.6-17.2)
[2017-07-18 07:38] LABS: BICARBONATE 26.8 MEQ/L (21.0-32.0); POTASSIUM 3.8 MEQ/L (3.5-5.1)
[2017-07-18] MEDS: diphenhydrAMINE HCL 25 MG CAP PO PRN ×2 (09:09→17:55)
[2017-07-18] MEDS: DOCUSATE SODIUM 50 MG/SENNA 8.6 MG TAB PO SCH ×2 (09:09→19:46)
[2017-07-18] MEDS: ENOXAPARIN SODIUM 40 MG/0.4 ML SYRINGE SQ SCH (09:09)
[2017-07-18] MEDS: SODIUM CHLORIDE 0.9% FLUSH 10 ML FLUSH IV FLUSH SCH ×2 (09:10→19:46)
[2017-07-18] MEDS: LACTATED RINGER'S 1000 ML INJ 1,000 ML IV SCH (10:40)
--- NOTE | 2017-07-18 12:04 | HHI.PR ---
Subjective Remarks Follow-up left tibial plateau fracture 07/17/17-patient seen and examined, patient is status post Compartment pressure checks left calf, closed reduction with manipulation left tibial plateau, external fixation left leg 07/18/17-patient seen and examined, pain is currently well-controlled and no acute event overnight Objective Vitals Vital Signs Date Time Temp Pulse Resp B/P (MAP) Pulse Ox O2 Delivery O2 Flow Rate FiO2 07/18/17 10:14 16 07/18/17 08:00 97.7 83 18 119/72 (88) 97 07/18/17 04:40 98.1 91 16 126/73 (90) 97 07/18/17 00:50 98.9 101 16 116/64 (81) 95 07/17/17 20:50 98.8 105 16 146/84 (104) 99 07/17/17 16:00 98.0 93 16 158/72 (100) 96 I/O 07/17/17 07/17/17 07/17/17 07/18/17 07/18/17 07/18/17 07:00 15:00 23:00 07:00 15:00 23:00 Intake Total 240 ml 1590 ml 720 ml 240 ml Output Total 350 ml 850 ml Balance -110 ml 740 ml 720 ml 240 ml Intake Oral 240 ml 240 ml 720 ml 240 ml IV Total 500 ml Other 850 ml Output Urine Total 350 ml Estimated Blood Loss 850 ml # Voids 1 5 2 2 # Bowel Movements 0 0 0 0 Result Diagram: 07/18/17 0645 07/18/17 0645 Objective Remarks GENERAL: NAD SKIN: Warm and dry. HEAD: Normocephalic. EYES: No scleral icterus. No injection or drainage. NECK: Supple, trachea midline. No JVD or lymphadenopathy. CARDIOVASCULAR: Regular rate and rhythm without murmurs, gallops, or rubs. RESPIRATORY: Breath sounds equal bilaterally. No accessory muscle use. GASTROINTESTINAL: Abdomen soft, non-tender, nondistended. MUSCULOSKELETAL: No cyanosis, or edema. External fixator to left lower extremity; neurovascular intact BACK: Nontender without obvious deformity. No CVA tenderness. Procedures Compartment pressure checks left calf, closed reduction with manipulation left tibial plateau, external fixation left leg 07/17/17 A/P Problem List: (1) Tibial plateau fracture, left ICD Code: S82.142A - Displaced bicondylar fracture of left tibia, initial encounter for closed fracture Status: Acute (2) Acute renal insufficiency ICD Code: N28.9 - Disorder of kidney and ureter, unspecified (3) Leukocytosis ICD Code: D72.829 - Elevated white blood cell count, unspecified Assessment and Plan Left tibial plateau fracture -Status post Compartment pressure checks left calf, closed reduction with manipulation left tibial plateau, external fixation left leg 07/17/17 - Management per orthopedic surgery and likely back to surgery on Friday -PT consult to treat and eval -Pain management accordingly Acute renal insufficiency - Improving with gentle IV fluid hydration - avoid nephrotoxins Leukocytosis - suspect secondary to stress DVT prophylaxis - Lovenox to be held on Friday Problem Qualifiers (1) Tibial plateau fracture, left: Qualified Codes: S82.142A - Displaced bicondylar fracture of left tibia, initial encounter for closed fracture Dandre South MD Jul 18, 2017 12:04
[2017-07-18] MEDS ORDERED: RESP: ALBUTEROL 2.5 MG/IPRATROPIUM 0.5 MG NEB (PRN) NEB (12:15)
[2017-07-19] VITALS: BP 137/75; PULSE 90; RESP 16; TEMP 98.5; O2SAT 96
[2017-07-19] MEDS: ACETAMINOPHEN/HYDROcodone 325 MG/10 MG TAB PO PRN ×6 (01:46→22:23)
[2017-07-19] MEDS: KETOROLAC TROMETHAMINE 30 MG/ML (IVP) VIAL IVP SCH (05:30)
[2017-07-19] MEDS: BISACODYL 10 MG SUPP RECTAL PRN (05:31)
[2017-07-19] MEDS: DOCUSATE SODIUM 50 MG/SENNA 8.6 MG TAB PO SCH ×2 (07:52→20:23)
[2017-07-19] MEDS: ENOXAPARIN SODIUM 40 MG/0.4 ML SYRINGE SQ SCH (07:53)
[2017-07-19] MEDS: SODIUM CHLORIDE 0.9% FLUSH 10 ML FLUSH IV FLUSH SCH ×2 (07:53→20:23)
[2017-07-19] MEDS: diphenhydrAMINE HCL 25 MG CAP PO PRN (07:56)
[2017-07-19 08:00] VITALS: BP 160/86; PULSE 88; RESP 18; TEMP 97.1; O2SAT 98
[2017-07-19 09:32] VITALS: O2SAT 95
--- NOTE | 2017-07-19 11:49 | HHI.PR ---
Subjective Remarks Follow-up left tibial plateau fracture 07/17/17-patient seen and examined, patient is status post Compartment pressure checks left calf, closed reduction with manipulation left tibial plateau, external fixation left leg 07/18/17-patient seen and examined, pain is currently well-controlled and no acute event overnight 07/19/17-patient seen and examined, she reports improvement of pain. Patient sitting in the chair. Tolerated by mouth well. Objective Vitals Vital Signs Date Time Temp Pulse Resp B/P (MAP) Pulse Ox O2 Delivery O2 Flow Rate FiO2 07/19/17 09:32 95 07/19/17 08:00 97.1 88 18 160/86 (110) 98 07/19/17 00:00 98.5 90 16 137/75 (95) 96 07/18/17 19:00 98.9 95 16 142/94 (110) 98 07/18/17 16:00 98.8 99 18 126/64 (84) 97 07/18/17 12:50 98 07/18/17 12:00 99.0 97 18 123/74 (90) 98 I/O 07/18/17 07/18/17 07/18/17 07/19/17 07/19/17 07/19/17 06:59 14:59 22:59 06:59 14:59 22:59 Intake Total 240 ml 750 ml 480 ml 480 ml Balance 240 ml 750 ml 480 ml 480 ml Intake Oral 240 ml 750 ml 480 ml 480 ml # Voids 2 3 2 2 # Bowel Movements 0 0 0 0 Result Diagram: 07/18/17 0645 07/18/17644 Objective Remarks GENERAL: NAD and sitting in a chair SKIN: Warm and dry. HEAD: Normocephalic. EYES: No scleral icterus. No injection or drainage. NECK: Supple, trachea midline. No JVD or lymphadenopathy. CARDIOVASCULAR: Regular rate and rhythm without murmurs, gallops, or rubs. RESPIRATORY: Breath sounds equal bilaterally. No accessory muscle use. GASTROINTESTINAL: Abdomen soft, non-tender, nondistended. MUSCULOSKELETAL: No cyanosis, or edema. External fixator to left lower extremity; neurovascular intact BACK: Nontender without obvious deformity. No CVA tenderness. Procedures Compartment pressure checks left calf, closed reduction with manipulation left tibial plateau, external fixation left leg 07/17/17 A/P Problem List: (1) Tibial plateau fracture, left ICD Code: S82.142A - Displaced bicondylar fracture of left tibia, initial encounter for closed fracture Status: Acute (2) Acute renal insufficiency ICD Code: N28.9 - Disorder of kidney and ureter, unspecified (3) Leukocytosis ICD Code: D72.829 - Elevated white blood cell count, unspecified Assessment and Plan 56-year-old female with Left tibial plateau fracture -Status post Compartment pressure checks left calf, closed reduction with manipulation left tibial plateau, external fixation left leg 07/17/17 - Management per orthopedic surgery and likely back to surgery on Friday -PT to treat and eval -Pain management accordingly Acute renal insufficiency - Improved with gentle IV fluid hydration - avoid nephrotoxins Leukocytosis - suspect secondary to stress DVT prophylaxis - Lovenox to be held on Friday Problem Qualifiers (1) Tibial plateau fracture, left: Qualified Codes: S82.142A - Displaced bicondylar fracture of left tibia, initial encounter for closed fracture Dandre South MD Jul 19, 2017 11:49
[2017-07-19 12:00] VITALS: BP 128/66; PULSE 88; RESP 18; TEMP 96.6; O2SAT 98
[2017-07-19 16:00] VITALS: BP 121/74; PULSE 90; RESP 18; TEMP 97.4; O2SAT 99
[2017-07-19 19:00] VITALS: BP 128/62; PULSE 100; RESP 15; TEMP 99.6; O2SAT 97
[2017-07-20] VITALS (7 sets, daily range): BP systolic 102–114; BP diastolic 58–67; PULSE 79–95; RESP 17–19; TEMP 97.5–99.1; O2SAT 97–100
[2017-07-20] MEDS: ACETAMINOPHEN/HYDROcodone 325 MG/10 MG TAB PO PRN ×6 (03:07→22:04)
--- NOTE | 2017-07-20 07:52 | PD.ORT.PN ---
Subjective Subjective Remarks No interval change overnight. No new leg pain. Proximal pin sites more painful than distal. She states she has throbbing distal thigh but lower leg ' is fine'. No new CP or SOB. Objective Vitals Vital Signs Date Time Temp Pulse Resp B/P (MAP) Pulse Ox O2 Delivery O2 Flow Rate FiO2 07/20/17 04:05 18 07/20/17 01:27 Room Air 07/20/17 00:00 98.5 81 17 114/61 (78) 97 07/19/17 21:15 21 07/19/17 19:00 99.6 100 15 128/62 (84) 97 07/19/17 16:00 97.4 90 18 121/74 (90) 99 07/19/17 12:00 96.6 88 18 128/66 (86) 98 07/19/17 09:32 95 07/19/17 08:00 97.1 88 18 160/86 (110) 98 I/O 07/19/17 07/19/17 07/19/17 07/20/17 07/20/17 07/20/17 07:00 15:00 23:00 07:00 15:00 23:00 Intake Total 480 ml 600 ml 480 ml Balance 480 ml 600 ml 480 ml Intake Oral 480 ml 600 ml 480 ml # Voids 2 1 3 # Bowel Movements 0 1 0 Result Diagram: 07/18/1745 07/18/17 0645 Objective Remarks Laying in bed Family member at bedside NAD VSS LLE ExFix in place hip to ankle, Multiple pin sites c/d/i, no new drainage, moderate swelling lower leg, Good sensation distal leg, wiggles toes freely, +nvi, +cap refill Assessment & Plan Ortho Post Op Day #: 3 Problem List: Assessment and Plan 1) Left Tibial Plateau Fx s/p exfix - POD 3 -regular/ADA diet (pt is historically not a diabetic) -elevate and ice leg -pin care BID -NWB lef t leg -Will place NPO after midnight tonight. Will hold lovenox after dose this morning - no evening dose. -Dr. Lozano to [facility] for surgical treatment mon/. Sarai Tijerina Jul 20, 2017 07:52
[2017-07-20] MEDS: DOCUSATE SODIUM 50 MG/SENNA 8.6 MG TAB PO SCH ×2 (08:03→21:12)
[2017-07-20] MEDS: SODIUM CHLORIDE 0.9% FLUSH 10 ML FLUSH IV FLUSH SCH ×2 (08:06→21:12)
[2017-07-20] MEDS ORDERED: ENOXAPARIN SODIUM 40 MG/0.4 ML SYRINGE SQ SCH (09:00)
[2017-07-20] MEDS: ONDANSETRON HCL 4 MG/2 ML VIAL IVP PRN (10:37)
--- NOTE | 2017-07-20 11:07 | HHI.PR ---
Subjective Remarks Follow-up left tibial plateau fracture 07/17/17-patient seen and examined, patient is status post Compartment pressure checks left calf, closed reduction with manipulation left tibial plateau, external fixation left leg 07/18/17-patient seen and examined, pain is currently well-controlled and no acute event overnight 07/19/17-patient seen and examined, she reports improvement of pain. Patient sitting in the chair. Tolerated by mouth well. 07/20/17-patient seen and examined, complains of pain to proximal left lower extremity. Also complains of nausea this morning Objective Vitals Vital Signs Date Time Temp Pulse Resp B/P (MAP) Pulse Ox O2 Delivery O2 Flow Rate FiO2 07/20/17 08:00 97.7 80 18 102/67 (79) 97 07/20/17 04:05 18 07/20/17 01:27 Room Air 07/20/17 00:00 98.5 81 17 114/61 (78) 97 07/19/17 21:15 21 07/19/17 19:00 99.6 100 15 128/62 (84) 97 07/19/17 16:00 97.4 90 18 121/74 (90) 99 07/19/17 12:00 96.6 88 18 128/66 (86) 98 I/O 07/19/17 07/19/17 07/19/17 07/20/17 07/20/17 07/20/17 07:00 15:00 23:00 07:00 15:00 23:00 Intake Total 480 ml 600 ml 480 ml Balance 480 ml 600 ml 480 ml Intake Oral 480 ml 600 ml 480 ml # Voids 2 1 3 # Bowel Movements 0 1 0 Result Diagram: 07/18/17 0645 07/18/17 0645 Objective Remarks GENERAL: NAD and sitting in a chair SKIN: Warm and dry. HEAD: Normocephalic. EYES: No scleral icterus. No injection or drainage. NECK: Supple, trachea midline. No JVD or lymphadenopathy. CARDIOVASCULAR: Regular rate and rhythm without murmurs, gallops, or rubs. RESPIRATORY: Breath sounds equal bilaterally. No accessory muscle use. GASTROINTESTINAL: Abdomen soft, non-tender, nondistended. MUSCULOSKELETAL: No cyanosis, or edema. External fixator to left lower extremity; neurovascular intact BACK: Nontender without obvious deformity. No CVA tenderness. Procedures Compartment pressure checks left calf, closed reduction with manipulation left tibial plateau, external fixation left leg 07/17/17 A/P Problem List: (1) Tibial plateau fracture, left ICD Code: S82.142A - Displaced bicondylar fracture of left tibia, initial encounter for closed fracture Status: Acute (2) Acute renal insufficiency ICD Code: N28.9 - Disorder of kidney and ureter, unspecified (3) Leukocytosis ICD Code: D72.829 - Elevated white blood cell count, unspecified Assessment and Plan 56-year-old female with Left tibial plateau fracture -Status post Compartment pressure checks left calf, closed reduction with manipulation left tibial plateau, external fixation left leg 07/17/17 - Management per orthopedic surgery and likely back to surgery on Friday -PT to treat and eval -Pain management Acute renal insufficiency - Improved with gentle IV fluid hydration - avoid nephrotoxins Leukocytosis - suspect secondary to stress DVT prophylaxis - Hold Lovenox tonight Problem Qualifiers (1) Tibial plateau fracture, left: Qualified Codes: S82.142A - Displaced bicondylar fracture of left tibia, initial encounter for closed fracture Dandre South MD Jul 20, 2017 11:07
[2017-07-21] MEDS ORDERED: CHLORHEXIDINE GLUCONATE 2 % 1 PACK (2 CLOTHS) TOPICAL PRN (00:15)
[2017-07-21] MEDS ORDERED: POVIDONE IODINE 5% (ANTISEPSIS KIT) 4 APPLICATIONS EACH NARE PRN (00:15)
[2017-07-21] MEDS ORDERED: SODIUM CHLORID 0.9% 500 ML IV PRN (00:15)
[2017-07-21] MEDS ORDERED: LACTATED RINGER'S 1000 ML IV PRN (00:15)
[2017-07-21 04:17] VITALS: BP 103/56; PULSE 78; RESP 18; TEMP 97.3; O2SAT 98
[2017-07-21] MEDS: ACETAMINOPHEN/HYDROcodone 325 MG/10 MG TAB PO PRN ×6 (04:25→20:52)
--- NOTE | 2017-07-21 06:55 | PD.ORT.PN ---
Subjective Subjective Remarks POD 4 s/p application of exfix left tibial plateau fx -doing well. pain controlled. resting comfortably Objective Vitals Vital Signs Date Time Temp Pulse Resp B/P (MAP) Pulse Ox O2 Delivery O2 Flow Rate FiO2 07/21/17 05:25 17 07/21/17 02:00 Room Air 07/20/17 23:00 97.8 89 18 105/59 (74) 98 07/20/17 19:36 99.1 95 18 114/58 (76) 100 07/20/17 18:10 98 07/20/17 16:00 98.2 86 19 105/59 (74) 100 07/20/17 12:00 97.5 79 18 110/61 (77) 99 07/20/17 08:00 97.7 80 18 102/67 (79) 97 I/O 07/20/17 07/20/17 07/20/17 07/21/17 07/21/17 07/21/17 07:00 15:00 23:00 07:00 15:00 23:00 Intake Total 720 ml 480 ml Balance 720 ml 480 ml Intake Oral 720 ml 480 ml # Voids 3 1 # Bowel Movements 0 Result Diagram: 07/18/17 0645 07/18/17 0645 Objective Remarks Laying in bed Family member at bedside NAD VSS LLE ExFix in place hip to ankle, Multiple pin sites c/d/i, no new drainage, moderate swelling lower leg, Good sensation distal leg, wiggles toes freely, +nvi, +cap refill Assessment & Plan Assessment and Plan 1) Left Tibial Plateau Fx s/p exfix - POD 4 -regular/ADA diet (pt is historically not a diabetic) -elevate and ice leg -pin care BID -NWB lef t leg -resume diet today -NPO after MN -sign consents -swelling not improved enough for surgery today. plan for tomorrow -toradol 30mg Q6H x 3 doses Dustin Fuller Jul 21, 2017 06:54
[2017-07-21 08:00] VITALS: BP 122/69; PULSE 80; RESP 16; TEMP 98.5; O2SAT 98
[2017-07-21] MEDS: SODIUM CHLORIDE 0.9% FLUSH 10 ML FLUSH IV FLUSH SCH ×2 (08:37→20:53)
[2017-07-21] MEDS: DOCUSATE SODIUM 50 MG/SENNA 8.6 MG TAB PO SCH ×2 (08:37→20:53)
[2017-07-21] MEDS: KETOROLAC TROMETHAMINE 30 MG/ML (IVP) VIAL IV PUSH SCH ×3 (08:38→20:53)
[2017-07-21 09:06] VITALS: O2SAT 97
--- NOTE | 2017-07-21 11:36 | HHI.PR ---
Subjective Remarks Follow-up left tibial plateau fracture 07/17/17-patient seen and examined, patient is status post Compartment pressure checks left calf, closed reduction with manipulation left tibial plateau, external fixation left leg 07/18/17-patient seen and examined, pain is currently well-controlled and no acute event overnight 07/19/17-patient seen and examined, she reports improvement of pain. Patient sitting in the chair. Tolerated by mouth well. 07/20/17-patient seen and examined, complains of pain to proximal left lower extremity. Also complains of nausea this morning 07/21/17-patient seen and examined, pain to left was treated to control. Denies any nausea today. Objective Vitals Vital Signs Date Time Temp Pulse Resp B/P (MAP) Pulse Ox O2 Delivery O2 Flow Rate FiO2 07/21/17 09:06 97 07/21/17 08:00 98.5 80 16 122/69 (86) 98 07/21/17 05:25 17 07/21/17 04:17 97.3 78 18 103/56 (72) 98 07/21/17 02:00 Room Air 07/20/17 23:00 97.8 89 18 105/59 (74) 98 07/20/17 19:36 99.1 95 18 114/58 (76) 100 07/20/17 18:10 98 07/20/17 16:00 98.2 86 19 105/59 (74) 100 07/20/17 12:00 97.5 79 18 110/61 (77) 99 I/O 07/20/17 07/20/17 07/20/17 07/21/17 07/21/17 07/21/17 07:00 15:00 23:00 07:00 15:00 23:00 Intake Total 720 ml 480 ml 0 ml Balance 720 ml 480 ml 0 ml Intake Oral 720 ml 480 ml 0 ml # Voids 3 1 1 # Bowel Movements 0 0 Result Diagram: 07/18/1764407/18/17644 Objective Remarks GENERAL: NAD and sitting in a chair SKIN: Warm and dry. HEAD: Normocephalic. EYES: No scleral icterus. No injection or drainage. NECK: Supple, trachea midline. No JVD or lymphadenopathy. CARDIOVASCULAR: Regular rate and rhythm without murmurs, gallops, or rubs. RESPIRATORY: Breath sounds equal bilaterally. No accessory muscle use. GASTROINTESTINAL: Abdomen soft, non-tender, nondistended. MUSCULOSKELETAL: No cyanosis, or edema. External fixator to left lower extremity; neurovascular intact BACK: Nontender without obvious deformity. No CVA tenderness. Procedures Compartment pressure checks left calf, closed reduction with manipulation left tibial plateau, external fixation left leg 07/17/17 A/P Problem List: (1) Tibial plateau fracture, left ICD Code: S82.142A - Displaced bicondylar fracture of left tibia, initial encounter for closed fracture Status: Acute (2) Acute renal insufficiency ICD Code: N28.9 - Disorder of kidney and ureter, unspecified (3) Leukocytosis ICD Code: D72.829 - Elevated white blood cell count, unspecified Assessment and Plan 56-year-old female with Left tibial plateau fracture -Status post Compartment pressure checks left calf, closed reduction with manipulation left tibial plateau, external fixation left leg 07/17/17 - Management per orthopedic surgery and likely back to surgery on Friday -PT to treat and eval -Pain management Acute renal insufficiency - Improved with gentle IV fluid hydration - avoid nephrotoxins Leukocytosis - suspect secondary to stress DVT prophylaxis - Hold Lovenox tonight Problem Qualifiers (1) Tibial plateau fracture, left: Qualified Codes: S82.142A - Displaced bicondylar fracture of left tibia, initial encounter for closed fracture Dandre South MD Jul 21, 2017 11:36
[2017-07-21 12:00] VITALS: BP 111/66; PULSE 77; RESP 16; TEMP 97.4; O2SAT 100
[2017-07-21 16:10] VITALS: BP 133/64; PULSE 80; RESP 16; TEMP 97.7; O2SAT 100
[2017-07-21] MEDS: ONDANSETRON HCL 4 MG/2 ML VIAL IVP PRN (18:07)
[2017-07-21 20:40] VITALS: BP 148/78; PULSE 93; RESP 18; TEMP 98.7; O2SAT 98
[2017-07-22] MEDS: ACETAMINOPHEN/HYDROcodone 325 MG/10 MG TAB PO PRN ×4 (00:14→19:41)
[2017-07-22 00:40] VITALS: BP 113/61; PULSE 82; RESP 18; TEMP 98.1; O2SAT 97
[2017-07-22 04:50] VITALS: BP 118/61; PULSE 76; RESP 18; TEMP 96.8; O2SAT 98
--- NOTE | 2017-07-22 06:40 | PD.ORT.PN ---
Subjective Subjective Remarks Resting comfortably with no new complaints Objective Vitals Vital Signs Date Time Temp Pulse Resp B/P (MAP) Pulse Ox O2 Delivery O2 Flow Rate FiO2 07/22/17 04:50 96.8 76 18 118/61 (80) 98 07/22/17 00:40 98.1 82 18 113/61 (78) 97 07/21/17 20:40 98.7 93 18 148/78 (101) 98 07/21/17 16:10 97.7 80 16 133/64 (87) 100 07/21/17 12:00 97.4 77 16 111/66 (81) 100 07/21/17 09:38 Room Air 07/21/17 09:06 97 07/21/17 08:00 98.5 80 16 122/69 (86) 98 I/O 07/21/17 07/21/17 07/21/17 07/22/17 07/22/17 07/22/17 07:00 15:00 23:00 07:00 15:00 23:00 Intake Total 0 ml 480 ml 240 ml Balance 0 ml 480 ml 240 ml Intake Oral 0 ml 480 ml 240 ml # Voids 1 2 2 # Bowel Movements 0 0 0 Result Diagram: 07/18/1745 07/18/17644 Objective Remarks Laying in bed Family member at bedside NAD VSS LLE ExFix in place hip to ankle, Multiple pin sites c/d/i, no new drainage, moderate swelling lower leg(improved), Good sensation distal leg, wiggles toes freely, +nvi, +cap refill Assessment & Plan Assessment and Plan 1) Left Tibial Plateau Fx s/p exfix - POD 5 -Nothing by mouth -elevate and ice leg -pin care BID -NWB lef t leg -sign consents -swelling has improved and surgery will be performed today Rohan Whitman Jr. Jul 22, 2017 06:40
[2017-07-22 08:00] VITALS: BP 117/73; PULSE 90; RESP 16; TEMP 97; O2SAT 96
[2017-07-22] MEDS: DOCUSATE SODIUM 50 MG/SENNA 8.6 MG TAB PO SCH ×2 (08:46→19:41)
[2017-07-22] MEDS: SODIUM CHLORIDE 0.9% FLUSH 10 ML FLUSH IV FLUSH SCH (08:46)
--- NOTE | 2017-07-22 10:40 | HHI.PR ---
Subjective Remarks Follow-up left tibial plateau fracture 07/17/17-patient seen and examined, patient is status post Compartment pressure checks left calf, closed reduction with manipulation left tibial plateau, external fixation left leg 07/18/17-patient seen and examined, pain is currently well-controlled and no acute event overnight 07/19/17-patient seen and examined, she reports improvement of pain. Patient sitting in the chair. Tolerated by mouth well. 07/20/17-patient seen and examined, complains of pain to proximal left lower extremity. Also complains of nausea this morning 07/21/17-patient seen and examined, pain to left was treated to control. Denies any nausea today. 07/22/17-patient seen and examined, currently nothing by mouth pending surgery today. Complain of throbbing left lower extremity pain. Objective Vitals Vital Signs Date Time Temp Pulse Resp B/P (MAP) Pulse Ox O2 Delivery O2 Flow Rate FiO2 07/22/17 04:50 96.8 76 18 118/61 (80) 98 07/22/17 00:40 98.1 82 18 113/61 (78) 97 07/21/17 20:40 98.7 93 18 148/78 (101) 98 07/21/17 16:10 97.7 80 16 133/64 (87) 100 07/21/17 12:00 97.4 77 16 111/66 (81) 100 I/O 07/21/17 07/21/17 07/21/17 07/22/17 07/22/17 07/22/17 07:00 15:00 23:00 07:00 15:00 23:00 Intake Total 0 ml 480 ml 240 ml 0 ml Balance 0 ml 480 ml 240 ml 0 ml Intake Oral 0 ml 480 ml 240 ml 0 ml # Voids 1 2 2 3 # Bowel Movements 0 0 0 0 Result Diagram: 07/18/17 0645 07/18/1745 Objective Remarks GENERAL: NAD and sitting in a chair SKIN: Warm and dry. HEAD: Normocephalic. EYES: No scleral icterus. No injection or drainage. NECK: Supple, trachea midline. No JVD or lymphadenopathy. CARDIOVASCULAR: Regular rate and rhythm without murmurs, gallops, or rubs. RESPIRATORY: Breath sounds equal bilaterally. No accessory muscle use. GASTROINTESTINAL: Abdomen soft, non-tender, nondistended. MUSCULOSKELETAL: No cyanosis, or edema. External fixator to left lower extremity; neurovascular intact BACK: Nontender without obvious deformity. No CVA tenderness. Procedures Compartment pressure checks left calf, closed reduction with manipulation left tibial plateau, external fixation left leg 07/17/17 A/P Problem List: (1) Tibial plateau fracture, left ICD Code: S82.142A - Displaced bicondylar fracture of left tibia, initial encounter for closed fracture Status: Acute (2) Acute renal insufficiency ICD Code: N28.9 - Disorder of kidney and ureter, unspecified (3) Leukocytosis ICD Code: D72.829 - Elevated white blood cell count, unspecified Assessment and Plan 56-year-old female with Left tibial plateau fracture -Status post Compartment pressure checks left calf, closed reduction with manipulation left tibial plateau, external fixation left leg 07/17/17 - Management per orthopedic surgery and likely back to surgery today Friday -PT to treat and eval -Pain management Acute renal insufficiency - Improved with IV fluid hydration - avoid nephrotoxins Leukocytosis - suspect secondary to stress DVT prophylaxis - Hold Lovenox Problem Qualifiers (1) Tibial plateau fracture, left: Qualified Codes: S82.142A - Displaced bicondylar fracture of left tibia, initial encounter for closed fracture Dandre South MD Jul 22, 2017 10:40
[2017-07-22] MEDS ORDERED: MIDAZOLAM HCL 2 MG/2 ML VIAL ONE (11:19)
[2017-07-22] MEDS ORDERED: DEXAMETHASONE SOD PHOS 4 MG/ML VIAL ONE (11:19)
[2017-07-22] MEDS ORDERED: FAMOTIDINE 20 MG/2 ML VIAL ONE (11:19)
[2017-07-22] MEDS ORDERED: ceFAZolin INJ 1,000 MG VIAL ONE (11:27)
[2017-07-22] MEDS ORDERED: VANCOMYCIN HCL 1000 MG VIAL ONE (11:27)
[2017-07-22] MEDS ORDERED: GENTAMICIN SULFATE 80 MG/2 ML VIAL ONE (11:28)
[2017-07-22] MEDS ORDERED: PROPOFOL 200 MG/20 ML AMP IV ONE (12:00)
[2017-07-22] MEDS ORDERED: PHENYLEPH/NS 1000 MCG/10 ML SYR IV ONE (12:00)
[2017-07-22] MEDS ORDERED: LACTATED RINGER'S 1000 ML INJ 1,000 ML IV ONE (12:00)
[2017-07-22] MEDS ORDERED: ONDANSETRON HCL 4 MG/2 ML VIAL IV PUSH ONE (12:00)
--- NOTE | 2017-07-22 14:38 | PD.OP ---
cc: Shawn Sams MD Operative Report Date of Surgery: Jul 22, 2017 Preoperative Diagnosis: Comminuted left tibial plateau fracture Postoperative Diagnosis: Procedure: Removal external fixation, open reduction internal fixation bicondylar left tibial plateau fracture Anesthesia: Gen. Surgeon: Shawn Sams Medical Collections(s): EFRAIN Mabry PA-C The surgical procedure was assisted by my physician operations and intelligence assistant. My P.A. presence was necessary throughout this case for the manipulation and positioning of the surgical extremity. My P.A. was assisting me throughout the duration of this procedure. The skill set of a physician operations and intelligence assistant was medically necessary to complete this procedure. During the surgical case the cardiovascular surgical tech was working at the back table and the physician operations and intelligence assistant was directly assisting me. Operation and Findings: This patient was seen and evaluated preoperatively. Patient sustained an injury resulting a bicondylar left tibial plateau fracture. Informed consent was obtained preoperatively after detailed discussion of the risks and benefits of surgery. Risk of surgery including bleeding, infection, nonunion, painful hardware, stiffness, loss of motion, arthritis, need for knee replacement, as well as medical complications including blood clots, stroke, heart attack, and were discussed. I also discussed the possibility of using allograft bone graft . Preoperatively the operative site was marked. Patient was brought to the operating room and placed on the operating room table. Intravenous sedation and general endotracheal anesthesia were administered. IV antibiotics were given and a time out procedure was preformed. Procedure began with removal of the external fixator. Clamps were loosened. Bars and clamps were now removed. The pins were left in place. Next,the operative leg was prepped with alcohol followed by Hibiclens and draped in the usual sterile fashion. Attention was now turned towards the medial tibial plateau. A 6 inch incision was made over the posterior medial aspect of the tibial plateau. Saphenous vein was protected. The PES insertion was elevated to expose the posterior medial tibial plateau. Fracture was visualized. Attention was now turned toward reduction. Traction was applied. Fracture was manipulated. Fracture keyed in excellent alignment. A fracture tenaculum was used to compress fracture. K wires were used for provisional fixation. Fluoroscopy confirmed excellent alignment of fracture. A Synthes plate was now placed along the posterior medial tibial plateau. Plate was provisionally held to bone with K wires. Fluoroscopy confirmed plate placement. 3.5 cortical screws were used to compress plate to bone. Additional locking screws were placed proximally. The screws did not cross the midline to avoid blocking reduction of the lateral tibial plateau.. Next a 4-inch curvilinear incision over the anterolateral knee. Subcutaneous tissue was treated with Bovie. Iliotibial band was split in line with fibers. A sub-meniscal arthrotomy was created and the lateral articular surface was visualized. There was significant comminution and depression of the articular surface. A window was made in the metaphyseal region and bone tamps used to elevate the articular surface. Articular surface reduced into excellent alignment. K-wires were used for provisional fixation. At this point cancellous bone graft was packed under the articular surface using a bone tamp. The cortical fragments were now reduced. Fluoroscopy revealed excellent alignment of fracture. A Synthes proximal tibial plate was selected. The plate was provisionally held with K-wires. 3.5 cortical screws were used compress plate to bone distally, and a periarticular clamp was used to compress the medial and lateral tibial plateau fracture fragments together. Multiple locking screws were now placed proximally. Additional screws were placed in the shaft. K-wires were removed. Final fluoroscopy showed excellent alignment of fracture with well-placed hardware. The incision was thoroughly irrigated. Attention was now returned back to the medial plate. Additional locking screws were placed proximally within the plate. All screws were predrilled and premeasured for appropriate length. Incisions were thoroughly irrigated. Attention was now turned to closure. Fascia and iliotibial band were closed with #1 Vicryl,. Subcutaneous tissues closed with 3-0 Vicryl and skin was closed with juan. Sterile dressings were applied. The external fixator pins were now removed using a drill. The patient was transferred to recovery in stable condition. Shawn Sams MD Jul 22, 2017 14:38
[2017-07-22] MEDS ORDERED: Post-op Orders (for Pharmacy) MISC XX ONE (14:45)
[2017-07-22] MEDS ORDERED: MISCELLANEOUS NURSING INFORMATION XX PRN (14:45)
[2017-07-22] MEDS ORDERED: SODIUM CHLORIDE 0.9% FLUSH 5 ML FLUSH IVF PRN (14:45)
--- NOTE | 2017-07-22 14:52 | RADRPT ---
EXAM DATE/TIME: 07/17/2017 10:07 [facility] COMPARISON: KNEE LEFT LTD (1 OR 2VWS), July 16, 2017, 17:46. INDICATIONS : ORIF left tibial plateau fracture. MEDICAL HISTORY : None. SURGICAL HISTORY : None. ENCOUNTER: Subsequent ACUITY: 1 week PAIN SCORE: Non-responsive. LOCATION: Left lower extremity. FINDINGS: 2 magnified CR spot views are centered over the knee joint and labeled left. These show a comminuted fracture involving the proximal tibia including depression of the lateral tibial plateau. No orthoped ic hardware observed. Alignment is grossly anatomical. CONCLUSION: Limited images as detailed above. Andrade Pope Jr., MD on July 22, 2017 at 14:50 Board Certified Radiologist. This report was verified electronically.
--- NOTE | 2017-07-22 14:53 | RADRPT ---
EXAM DATE/TIME: 07/17/2017 10:07 [facility] COMPARISON: KNEE LEFT LTD (1 OR 2VWS), July 16, 2017, 17:46. INDICATIONS : Post-op ORIF left tibial plateau fracture. MEDICAL HISTORY : None. SURGICAL HISTORY : None. ENCOUNTER: Subsequent ACUITY: 1 week PAIN SCORE: Non-responsive. LOCATION: Left lower extremity. FINDINGS: 3 magnified C-arm spot views are centered over the knee joint and labeled left. These reveal medial a nd lateral orthopedic plates with multiple anchoring screws traversing a comminuted fracture of the p roximal tibia. Good alignment is noted. CONCLUSION: Limited images as detailed above. Andrade Pope Jr., MD on July 22, 2017 at 14:51 Board Certified Radiologist. This report was verified electronically.
[2017-07-22] MEDS ORDERED: DO NOT ADM ANY ANTICOAGULANT DRUGS PRN (15:10)
[2017-07-22] MEDS ORDERED: *morphine SULFATE 8 MG/ML PERIprocedure ONLY ONE ×3 (15:27→16:47)
[2017-07-22 17:00] VITALS: BP 159/76; PULSE 111; RESP 16; TEMP 97.5; O2SAT 95
[2017-07-22] MEDS: LACTATED RINGER'S 1000 ML INJ 1,000 ML IV SCH (17:00)
[2017-07-22] MEDS ORDERED: ERGOCALCIFEROL (VIT D2) 50,000 UNIT CAP PO SCH (18:00)
[2017-07-22] MEDS: MORPHINE SULFATE 4 MG/ML INJ IV PUSH PRN ×2 (19:02→22:30)
[2017-07-22] MEDS: ceFAZolin 2 GM PREMIX 50 ML IV SCH (19:41)
[2017-07-22 19:45] VITALS: O2SAT 96
[2017-07-22] MEDS ORDERED: METHOCARBAMOL 500 MG TAB PO PRN (19:45)
[2017-07-22 19:50] VITALS: BP 146/77; PULSE 89; RESP 18; TEMP 98.9; O2SAT 97
[2017-07-22] MEDS ORDERED: PILL SPLITTER OTHER PRN (20:00)
[2017-07-22] MEDS: SODIUM CHLORIDE 0.9% FLUSH 5 ML FLUSH IVF SCH (20:54)
[2017-07-22] MEDS: METHOCARBAMOL 500 MG TAB PO PRN (20:57)
[2017-07-22] MEDS: KETOROLAC TROMETHAMINE 30 MG/ML (IVP) VIAL IVP SCH (22:30)
[2017-07-23] VITALS (8 sets, daily range): BP systolic 113–135; BP diastolic 56–66; PULSE 89–109; RESP 17–18; TEMP 97.1–99.5; O2SAT 93–98
[2017-07-23] MEDS: VANCOMYCIN INJ 1,000 MG in SODIUM CHLOR 0.9% 250 ML INJ 250 ML IV SCH ×3 (00:13→22:45)
[2017-07-23] MEDS: ACETAMINOPHEN/HYDROcodone 325 MG/10 MG TAB PO PRN ×7 (00:17→21:52)
[2017-07-23] MEDS: MORPHINE SULFATE 4 MG/ML INJ IV PUSH PRN ×5 (02:16→20:51)
[2017-07-23 05:02] LABS: HEMATOCRIT 28.7 % (35.0-46.0); REVIEW FLAG FINAL
[2017-07-23] MEDS: KETOROLAC TROMETHAMINE 30 MG/ML (IVP) VIAL IVP SCH ×3 (05:10→22:45)
[2017-07-23] MEDS: ceFAZolin 2 GM PREMIX 50 ML IV SCH ×3 (05:10→19:37)
[2017-07-23] MEDS ORDERED: WALKER/ADULT/FO1 MIS (06:12)
[2017-07-23] MEDS ORDERED: XARE10TA PO (06:12)
[2017-07-23] MEDS ORDERED: HYDR-3583 PO (06:12)
[2017-07-23] MEDS ORDERED: WHEEMIS3 (06:12)
--- NOTE | 2017-07-23 06:51 | PD.ORT.PN ---
Subjective Subjective Remarks Resting comfortably with no new complaints Objective Vitals Vital Signs Date Time Temp Pulse Resp B/P (MAP) Pulse Ox O2 Delivery O2 Flow Rate FiO2 07/23/17 03:47 98.6 89 17 128/61 (83) 98 07/23/17 00:15 98.7 93 18 124/61 (82) 93 07/22/17 19:50 98.9 89 18 146/77 (100) 97 07/22/17 19:45 96 07/22/17 17:00 97.5 111 16 159/76 (103) 95 07/22/17 17:00 98.0 110 16 165/77 (106) 96 Nasal Cannula 2 07/22/17 16:45 110 16 164/78 (106) 99 Nasal Cannula 2 07/22/17 16:30 111 16 156/70 (98) 97 Nasal Cannula 2 07/22/17 16:15 104 16 157/74 (101) 100 Nasal Cannula 2 07/22/17 16:00 100 16 157/65 (95) 100 Nasal Cannula 2 07/22/17 15:45 106 16 161/74 (103) 96 Nasal Cannula 2 07/22/17 15:30 104 16 153/75 (101) 96 Nasal Cannula 2 07/22/17 15:15 99 16 142/66 (91) 94 Nasal Cannula 2 07/22/17 15:05 98.0 97 16 146/61 (89) 95 Nasal Cannula 2 07/22/17 08:47 Room Air 07/22/17 08:00 97.0 90 16 117/73 (88) 96 I/O 07/22/17 07/22/17 07/22/17 07/23/17 07/23/17 07/23/17 07:00 15:00 23:00 07:00 15:00 23:00 Intake Total 0 ml 1620 ml 1440 ml Output Total 150 ml Balance 0 ml 1470 ml 1440 ml Intake Oral 0 ml 420 ml 480 ml IV Total 200 ml 960 ml Other 1000 ml Estimated Blood Loss 150 ml # Voids 3 6 5 # Bowel Movements 0 0 0 Result Diagram: 07/23/17 0422 Objective Remarks Laying in bed Family member at bedside NAD VSS LLE knee immobilizer in place, clean dry dressings intact. Intact sensation distally, strong dorsiflexion plantar flexion of foot Assessment & Plan Assessment and Plan Left Tibial Plateau Fx ORIF POD 1 Nonweightbearing left lower extremity, passive range of motion of knee, no active leglifts or quad sets Knee immobilizer at all times except for physical therapy [employer] to apply 23 inch knee immobilizer with lifting strap Daily dressing changes beginning POD 2 Lovenox Discharge planning to rehabilitation tomorrow or Friday Follow-up appointment with Dr. Sams or PA in 2 weeks Rohan Whitman Jr. Jul 23, 2017 06:51
[2017-07-23] MEDS: DOCUSATE SODIUM 50 MG/SENNA 8.6 MG TAB PO SCH ×2 (08:29→19:37)
[2017-07-23] MEDS: CHOLECALCIFEROL (VIT D3) 1000 UNIT TAB PO SCH (08:30)
[2017-07-23] MEDS: SODIUM CHLORIDE 0.9% FLUSH 5 ML FLUSH IVF SCH ×2 (08:32→19:37)
[2017-07-23] MEDS: METHOCARBAMOL 500 MG TAB PO PRN ×3 (10:49→22:45)
--- NOTE | 2017-07-23 11:57 | HHI.PR ---
Subjective Remarks Follow-up left tibial plateau fracture 07/17/17-patient seen and examined, patient is status post Compartment pressure checks left calf, closed reduction with manipulation left tibial plateau, external fixation left leg 07/18/17-patient seen and examined, pain is currently well-controlled and no acute event overnight 07/19/17-patient seen and examined, she reports improvement of pain. Patient sitting in the chair. Tolerated by mouth well. 07/20/17-patient seen and examined, complains of pain to proximal left lower extremity. Also complains of nausea this morning 07/21/17-patient seen and examined, pain to left was treated to control. Denies any nausea today. 07/22/17-patient seen and examined, currently nothing by mouth pending surgery today. Complain of throbbing left lower extremity pain. 07/23/17-patient seen and examined, stable today and denies any significant left was treated pain. She is s/p Removal external fixation, open reduction internal fixation bicondylar left tibial plateau fracture 07/21/17 Objective Vitals Vital Signs Date Time Temp Pulse Resp B/P (MAP) Pulse Ox O2 Delivery O2 Flow Rate FiO2 07/23/17 10:51 97.1 102 17 119/64 (82) 98 07/23/17 10:09 97 07/23/17 07:43 98.8 105 17 113/56 (75) 93 07/23/17 03:47 98.6 89 17 128/61 (83) 98 07/23/17 00:15 98.7 93 18 124/61 (82) 93 07/22/17 19:50 98.9 89 18 146/77 (100) 97 07/22/17 19:45 96 07/22/17 17:00 97.5 111 16 159/76 (103) 95 07/22/17 17:00 98.0 110 16 165/77 (106) 96 Nasal Cannula 2 07/22/17 16:45 110 16 164/78 (106) 99 Nasal Cannula 2 07/22/17 16:30 111 16 156/70 (98) 97 Nasal Cannula 2 07/22/17 16:15 104 16 157/74 (101) 100 Nasal Cannula 2 07/22/17 16:00 100 16 157/65 (95) 100 Nasal Cannula 2 07/22/17 15:45 106 16 161/74 (103) 96 Nasal Cannula 2 07/22/17 15:30 104 16 153/75 (101) 96 Nasal Cannula 2 07/22/17 15:15 99 16 142/66 (91) 94 Nasal Cannula 2 07/22/17 15:05 98.0 97 16 146/61 (89) 95 Nasal Cannula 2 I/O 07/22/17 07/22/17 07/22/17 07/23/17 07/23/17 07/23/17 06:59 14:59 22:59 06:59 14:59 22:59 Intake Total 0 ml 1620 ml 1440 ml Output Total 150 ml Balance 0 ml 1470 ml 1440 ml Intake Oral 0 ml 420 ml 480 ml IV Total 200 ml 960 ml Other 1000 ml Estimated Blood Loss 150 ml # Voids 3 6 5 # Bowel Movements 0 0 0 Result Diagram: 07/23/17 0422 Objective Remarks GENERAL: NAD and sitting in a chair SKIN: Warm and dry. HEAD: Normocephalic. EYES: No scleral icterus. No injection or drainage. NECK: Supple, trachea midline. No JVD or lymphadenopathy. CARDIOVASCULAR: Regular rate and rhythm without murmurs, gallops, or rubs. RESPIRATORY: Breath sounds equal bilaterally. No accessory muscle use. GASTROINTESTINAL: Abdomen soft, non-tender, nondistended. MUSCULOSKELETAL: No cyanosis, or edema. brace over LLE-neurovascular intact BACK: Nontender without obvious deformity. No CVA tenderness. Procedures Compartment pressure checks left calf, closed reduction with manipulation left tibial plateau, external fixation left leg 07/17/17 Removal external fixation, open reduction internal fixation bicondylar left tibial plateau fracture 07/21/17 A/P Problem List: (1) Tibial plateau fracture, left ICD Code: S82.142A - Displaced bicondylar fracture of left tibia, initial encounter for closed fracture Status: Acute (2) Acute renal insufficiency ICD Code: N28.9 - Disorder of kidney and ureter, unspecified (3) Leukocytosis ICD Code: D72.829 - Elevated white blood cell count, unspecified Assessment and Plan 56-year-old female with Left tibial plateau fracture -Status post Compartment pressure checks left calf, closed reduction with manipulation left tibial plateau, external fixation left leg 07/17/17 -s/p Removal external fixation, open reduction internal fixation bicondylar left tibial plateau fracture 07/21/17 - Management per orthopedic surgery -PT to treat and eval -Pain management Acute renal insufficiency - Improved - avoid nephrotoxins Leukocytosis - suspect secondary to stress DVT prophylaxis - Lovenox Discharge Planning Likely discharge to rehabilitation 07/24/17 Problem Qualifiers (1) Tibial plateau fracture, left: Qualified Codes: S82.142A - Displaced bicondylar fracture of left tibia, initial encounter for closed fracture Dandre South MD Jul 23, 2017 11:57
[2017-07-23] MEDS: ONDANSETRON HCL 4 MG/2 ML VIAL IVP PRN ×2 (12:58→19:37)
[2017-07-23] MEDS: ENOXAPARIN SODIUM 30 MG/0.3 ML SYRINGE SQ SCH (14:43)
[2017-07-23] MEDS: LACTATED RINGER'S 1000 ML INJ 1,000 ML IV SCH (16:05)
[2017-07-24] MEDS: MORPHINE SULFATE 4 MG/ML INJ IV PUSH PRN ×3 (00:22→06:44)
[2017-07-24] MEDS: ENOXAPARIN SODIUM 30 MG/0.3 ML SYRINGE SQ SCH ×2 (01:29→14:08)
[2017-07-24] MEDS: ACETAMINOPHEN/HYDROcodone 325 MG/10 MG TAB PO PRN ×7 (01:29→23:53)
[2017-07-24 03:09] VITALS: O2SAT 97
[2017-07-24] MEDS: ceFAZolin 2 GM PREMIX 50 ML IV SCH ×2 (03:38→12:10)
[2017-07-24] MEDS: LACTATED RINGER'S 1000 ML INJ 1,000 ML IV SCH ×2 (04:06→18:58)
[2017-07-24] MEDS: METHOCARBAMOL 500 MG TAB PO PRN ×4 (05:08→23:54)
[2017-07-24] MEDS: KETOROLAC TROMETHAMINE 30 MG/ML (IVP) VIAL IVP SCH ×2 (05:09→14:07)
[2017-07-24 07:29] VITALS: BP 116/62; PULSE 92; RESP 18; TEMP 99.7; O2SAT 92
[2017-07-24] MEDS: SODIUM CHLORIDE 0.9% FLUSH 5 ML FLUSH IVF SCH ×2 (09:00→20:36)
--- NOTE | 2017-07-24 09:31 | PD.ORT.PN ---
Subjective Subjective Remarks Resting comfortably with no new complaints Objective Vitals Vital Signs Date Time Temp Pulse Resp B/P (MAP) Pulse Ox O2 Delivery O2 Flow Rate FiO2 07/24/17 07:29 99.7 92 18 116/62 (80) 92 07/24/17 03:09 97 07/23/17 23:25 99.5 103 18 135/60 (85) 98 07/23/17 19:29 98.5 101 18 130/60 (83) 97 07/23/17 15:06 97.7 109 18 125/66 (85) 95 07/23/17 10:51 97.1 102 17 119/64 (82) 98 07/23/17 10:09 97 I/O 07/23/17 07/23/17 07/23/17 07/24/17 07/24/17 07/24/17 07:00 15:00 23:00 07:00 15:00 23:00 Intake Total 1440 ml 750 ml 530 ml 730 ml Balance 1440 ml 750 ml 530 ml 730 ml Intake Oral 480 ml 750 ml 480 ml 480 ml IV Total 960 ml 50 ml 250 ml # Voids 5 4 4 3 # Bowel Movements 0 0 0 Result Diagram: 07/23/17 0422 Objective Remarks Laying in bed Family member at bedside NAD VSS LLE knee immobilizer in place, clean dry dressings intact. Dressing is taken down and incisions were well approximated and healing well. Compartments soft. Intact sensation distally, strong dorsiflexion plantar flexion of foot Assessment & Plan Assessment and Plan Left Tibial Plateau Fx ORIF POD 2 Nonweightbearing left lower extremity, passive range of motion of knee, no active leglifts or quad sets Knee immobilizer at all times except for physical therapy [employer] to apply 23 inch knee immobilizer with lifting strap Daily dressing changes Lovenox Discharge planning to rehabilitation today or Friday Follow-up appointment with Dr. Sams or PA in 2 weeks Rohan Whitman Jr. Jul 24, 2017 09:31
[2017-07-24] MEDS: DOCUSATE SODIUM 50 MG/SENNA 8.6 MG TAB PO SCH ×2 (09:45→20:35)
[2017-07-24] MEDS: CHOLECALCIFEROL (VIT D3) 1000 UNIT TAB PO SCH (09:46)
[2017-07-24 11:23] VITALS: BP 130/71; PULSE 98; RESP 18; TEMP 97.5; O2SAT 97
--- NOTE | 2017-07-24 11:49 | HHI.PR ---
Subjective Remarks Follow-up left tibial plateau fracture 07/17/17-patient seen and examined, patient is status post Compartment pressure checks left calf, closed reduction with manipulation left tibial plateau, external fixation left leg 07/18/17-patient seen and examined, pain is currently well-controlled and no acute event overnight 07/19/17-patient seen and examined, she reports improvement of pain. Patient sitting in the chair. Tolerated by mouth well. 07/20/17-patient seen and examined, complains of pain to proximal left lower extremity. Also complains of nausea this morning 07/21/17-patient seen and examined, pain to left was treated to control. Denies any nausea today. 07/22/17-patient seen and examined, currently nothing by mouth pending surgery today. Complain of throbbing left lower extremity pain. 07/23/17-patient seen and examined, stable today and denies any significant left was treated pain. She is s/p Removal external fixation, open reduction internal fixation bicondylar left tibial plateau fracture 07/21/17 07/24/17-patient seen and examined, reports improvement of left was treated pain. Only complaints of nausea as well as constipation. Case was discussed with Dr. Peck physiatry, regarding possible discharge to inpatient rehabilitation Objective Vitals Vital Signs Date Time Temp Pulse Resp B/P (MAP) Pulse Ox O2 Delivery O2 Flow Rate FiO2 07/24/17 11:23 97.5 98 18 130/71 (90) 97 07/24/17 07:29 99.7 92 18 116/62 (80) 92 07/24/17 03:09 97 07/23/17 23:25 99.5 103 18 135/60 (85) 98 07/23/17 19:29 98.5 101 18 130/60 (83) 97 07/23/17 15:06 97.7 109 18 125/66 (85) 95 I/O 07/23/17 07/23/17 07/23/17 07/24/17 07/24/17 07/24/17 06:59 14:59 22:59 06:59 14:59 22:59 Intake Total 1440 ml 750 ml 530 ml 730 ml Balance 1440 ml 750 ml 530 ml 730 ml Intake Oral 480 ml 750 ml 480 ml 480 ml IV Total 960 ml 50 ml 250 ml # Voids 5 4 4 3 # Bowel Movements 0 0 0 Result Diagram: 07/23/17 0422 Imaging Last Impressions Knee X-Ray 07/22/17 0000 Signed Impressions: Service Date/Time: June 10:07 - CONCLUSION: Limited images as detailed above. Andrade Pope Jr., MD Upper Extremity CT 07/16/17 0000 Signed Impressions: Service Date/Time: Sunday, July 16, 2017 20:15 - CONCLUSION: 1. No acute fracture or dislocation. Soft tissue swelling and edema posteriorly in the olecranon region near the triceps insertion. Felix Buckner MD Tibia/Fibula X-Ray 07/16/17 0000 Signed Impressions: Service Date/Time: Sunday, July 16, 2017 17:47 - CONCLUSION: Comminuted intra-articular fracture involving the tibial plateau with extension of fracture into the shaft of the tibia. Lennox Moore MD Lower Extremity CT 07/16/17 0000 Signed Impressions: Service Date/Time: Sunday, July 16, 2017 18:29 - CONCLUSION: Severely comminuted articular fracture involving the entire tibial plateau. Lennox Moore MD Foot X-Ray 07/16/17 0000 Signed Impressions: Service Date/Time: Sunday, July 16, 2017 17:50 - CONCLUSION: No acute disease. Andrade Pope Jr., MD Elbow X-Ray 07/16/17 0000 Signed Impressions: Service Date/Time: Sunday, July 16, 2017 17:59 - CONCLUSION: 1. Questionable transcondylar fracture. No joint effusion. Andrade Pope Jr., MD Objective Remarks GENERAL: NAD and sitting in a chair SKIN: Warm and dry. HEAD: Normocephalic. EYES: No scleral icterus. No injection or drainage. NECK: Supple, trachea midline. No JVD or lymphadenopathy. CARDIOVASCULAR: Regular rate and rhythm without murmurs, gallops, or rubs. RESPIRATORY: Breath sounds equal bilaterally. No accessory muscle use. GASTROINTESTINAL: Abdomen soft, non-tender, nondistended. MUSCULOSKELETAL: No cyanosis, or edema. brace over LLE-neurovascular intact BACK: Nontender without obvious deformity. No CVA tenderness. Procedures Compartment pressure checks left calf, closed reduction with manipulation left tibial plateau, external fixation left leg 07/17/17 Removal external fixation, open reduction internal fixation bicondylar left tibial plateau fracture 07/21/17 A/P Problem List: (1) Tibial plateau fracture, left ICD Code: S82.142A - Displaced bicondylar fracture of left tibia, initial encounter for closed fracture Status: Acute (2) Acute renal insufficiency ICD Code: N28.9 - Disorder of kidney and ureter, unspecified (3) Leukocytosis ICD Code: D72.829 - Elevated white blood cell count, unspecified Assessment and Plan 56-year-old female with Left tibial plateau fracture -Status post Compartment pressure checks left calf, closed reduction with manipulation left tibial plateau, external fixation left leg 07/17/17 -s/p Removal external fixation, open reduction internal fixation bicondylar left tibial plateau fracture 07/21/17 - Management per orthopedic surgery -PT to treat and eval -Pain management -Case was discussed today 07/24/[address] Peck, Rehabilitation Medicine regarding discharged to [facility] as I believe patient will do well at [place] Acute renal insufficiency - Improved - avoid nephrotoxins Leukocytosis - suspect secondary to stress DVT prophylaxis - Lovenox Discharge Planning Likely discharge to [place] rehabilitation possible today 07/24/17 Problem Qualifiers (1) Tibial plateau fracture, left: Qualified Codes: S82.142A - Displaced bicondylar fracture of left tibia, initial encounter for closed fracture Dandre South MD Jul 24, 2017 11:49
[2017-07-24] MEDS ORDERED: PERI8.6T PO (11:57)
--- NOTE | 2017-07-24 12:02 | HHI.DS ---
Discharge Summary Admission Date Jul 16, 2017 at 19:23 Discharge Date: Jul 25, 2017 Admitting Diagnosis Tibial plateau fracture (1) Tibial plateau fracture, left ICD Code: S82.142A - Displaced bicondylar fracture of left tibia, initial encounter for closed fracture Status: Acute (2) Acute renal insufficiency ICD Code: N28.9 - Disorder of kidney and ureter, unspecified (3) Leukocytosis ICD Code: D72.829 - Elevated white blood cell count, unspecified Procedures Compartment pressure checks left calf, closed reduction with manipulation left tibial plateau, external fixation left leg 07/17/17 Removal external fixation, open reduction internal fixation bicondylar left tibial plateau fracture 07/21/17 Brief History - From Admission Written by Polina Pereyra, acting as scribe for Dr. Price on 07/17/17 at 02:09. She was cleaning out her parents' place, coming out of the attic, and got scared by something while on the third rung down on a ladder, her foot got stuck on the rung, and she fell. She had severe left knee, foot, and elbow pain following fall. She is here visiting from [place]. She denies any dizziness, syncope, chest pain, or shortness of breath prior to fall. Denies fever, nausea, vomiting, diarrhea, chest pain, sob, syncope, dysuria, hematuria, bloody stools, or black stools over the past few weeks. CBC/BMP: 07/23/17 0422 Significant Findings Laboratory Tests Test 07/23/17 04:22 Hemoglobin 9.5 GM/DL (11.6-15.3) Hematocrit 28.7 % (35.0-46.0) Imaging Last Impressions Knee X-Ray 07/22/17 0000 Signed Impressions: Service Date/Time: June 10:07 - CONCLUSION: Limited images as detailed above. Andrade Pope Jr., MD Upper Extremity CT 07/16/17 0000 Signed Impressions: Service Date/Time: Sunday, July 16, 2017 20:15 - CONCLUSION: 1. No acute fracture or dislocation. Soft tissue swelling and edema posteriorly in the olecranon region near the triceps insertion. Felix Buckner MD Tibia/Fibula X-Ray 07/16/17 0000 Signed Impressions: Service Date/Time: Sunday, July 16, 2017 17:47 - CONCLUSION: Comminuted intra-articular fracture involving the tibial plateau with extension of fracture into the shaft of the tibia. Lennox Moore MD Lower Extremity CT 07/16/17 0000 Signed Impressions: Service Date/Time: Sunday, July 16, 2017 18:29 - CONCLUSION: Severely comminuted articular fracture involving the entire tibial plateau. Lennox Moore MD Foot X-Ray 07/16/17 0000 Signed Impressions: Service Date/Time: Sunday, July 16, 2017 17:50 - CONCLUSION: No acute disease. Andrade Pope Jr., MD Elbow X-Ray 07/16/17 0000 Signed Impressions: Service Date/Time: Sunday, July 16, 2017 17:59 - CONCLUSION: 1. Questionable transcondylar fracture. No joint effusion. Andrade Pope Jr., MD PE at Discharge GENERAL: NAD and sitting in a chair SKIN: Warm and dry. HEAD: Normocephalic. EYES: No scleral icterus. No injection or drainage. NECK: Supple, trachea midline. No JVD or lymphadenopathy. CARDIOVASCULAR: Regular rate and rhythm without murmurs, gallops, or rubs. RESPIRATORY: Breath sounds equal bilaterally. No accessory muscle use. GASTROINTESTINAL: Abdomen soft, non-tender, nondistended. MUSCULOSKELETAL: No cyanosis, or edema. brace over LLE-neurovascular intact BACK: Nontender without obvious deformity. No CVA tenderness. Hospital Course Patient admitted secondary to Left tibial plateau fracture for which orthopedic surgery was consulted . She first underwent Compartment pressure checks left calf, closed reduction with manipulation left tibial plateau, external fixation left leg on 07/17/17, followed by Removal external fixation, open reduction internal fixation bicondylar left tibial plateau fracture on 07/21/17. PT was consulted and pain management was provided along with DVT prophylaxis. Her renal function improved with IV fluid hydration. Patient was continued on her medication for hypothyroidism. Prior to discharge, patient's condition improved and vital remained stable. Pt Condition on Discharge: Stable Discharge Disposition: Rehab Inpatient Discharge Time: > 30 minutes Discharge Instructions DIET: Follow Instructions for: Heart Healthy Diet Activities you can perform: Regular-No Restrictions Follow up Referrals: Orthopedics - 2 Weeks @ [facility] with Shawn Lozano MD New Medications: Hydrocodone-Acetaminophen (Hydrocodone-Acetaminophen) 10-325 mg Tab 1 TAB PO Q4H PRN for PAIN, #60 TAB 0 Refills Rivaroxaban (Xarelto) 10 Mg Tab 10 MG PO DAILY for Blood Clot Prevention for 14 Days, TAB 0 Refills Sennosides-Docusate Sodium (Lisa-Colace) 8.6-50 Mg Tab 1 TAB PO BID PRN for Constipation, #60 TAB 0 Refills Walker/Adult/Folding (Walker/Adult/Folding) 1 Mis Mis EA .ROUTE DIRECTED, #1 0 Refills Wheelchair Elevated Leg (Wheelchair Elevated Leg) 1 Mis Mis EA .ROUTE DIRECTED, #1 0 Refills Continued Medications: Levothyroxine (Tirosint) 25 Mcg Cap 25 MCG PO DAILY for Thyroid, #30 CAP 0 Refills Dandre South MD Jul 24, 2017 12:01
[2017-07-24 15:20] VITALS: BP 125/67; PULSE 101; RESP 18; TEMP 97.8; O2SAT 97
[2017-07-24 20:03] VITALS: BP 134/77; PULSE 101; RESP 16; TEMP 99.2; O2SAT 97
[2017-07-25] VITALS: BP 142/70; PULSE 92; RESP 16; TEMP 98.7; O2SAT 98
[2017-07-25] MEDS: ACETAMINOPHEN/HYDROcodone 325 MG/10 MG TAB PO PRN ×4 (03:07→13:31)
[2017-07-25] MEDS: ENOXAPARIN SODIUM 30 MG/0.3 ML SYRINGE SQ SCH ×2 (03:07→13:31)
[2017-07-25] MEDS: METHOCARBAMOL 500 MG TAB PO PRN ×2 (06:20→12:11)
[2017-07-25] MEDS: BISACODYL 10 MG SUPP RECTAL PRN (06:21)
--- NOTE | 2017-07-25 07:49 | PD.ORT.PN ---
Subjective Subjective Remarks POD 3 s/p ORIF left tibial plateau -doing well. pain controlled. resting comfortably Objective Vitals Vital Signs Date Time Temp Pulse Resp B/P (MAP) Pulse Ox O2 Delivery O2 Flow Rate FiO2 07/25/17 00:00 98.7 92 16 142/70 (94) 98 07/24/17 21:09 21 07/24/17 20:03 99.2 101 16 134/77 (96) 97 07/24/17 15:20 97.8 101 18 125/67 (86) 97 07/24/17 11:23 97.5 98 18 130/71 (90) 97 I/O 07/24/17 07/24/17 07/24/17 07/25/17 07/25/17 07/25/17 07:00 15:00 23:00 07:00 15:00 23:00 Intake Total 730 ml 750 ml 720 ml 720 ml Balance 730 ml 750 ml 720 ml 720 ml Intake Oral 480 ml 750 ml 720 ml 720 ml IV Total 250 ml # Voids 3 4 2 1 # Bowel Movements 0 0 Result Diagram: 07/23/17 0422 Objective Remarks Laying in bed Family member at bedside NAD VSS LLE knee immobilizer in place, clean dry dressings intact. Dressing is taken down and incisions were well approximated and healing well. Compartments soft. Intact sensation distally, strong dorsiflexion plantar flexion of foot Assessment & Plan Assessment and Plan Left Tibial Plateau Fx ORIF POD 3 Nonweightbearing left lower extremity, passive range of motion of knee, no active leglifts or quad sets Knee immobilizer at all times except for physical therapy Daily dressing changes Lovenox. Xarelto on discharge Discharge planning to rehabilitation today Follow-up appointment with Dr. Sams or PA in 2 weeks Dustin Fuller Jul 25, 2017 07:49
[2017-07-25 08:00] VITALS: BP 105/57; PULSE 84; RESP 16; TEMP 98.1; O2SAT 100
[2017-07-25] MEDS: CHOLECALCIFEROL (VIT D3) 1000 UNIT TAB PO SCH (08:37)
[2017-07-25] MEDS ORDERED: BACITRACIN TOP OINT 15 GM TUBE TOPICAL SCH (09:00)
[2017-07-25 12:00] VITALS: BP 107/57; PULSE 84; RESP 20; TEMP 98.9; O2SAT 94
--- NOTE | 2017-07-25 13:14 | HHI.PR ---
Subjective Remarks Follow-up left tibial plateau fracture 07/17/17-patient seen and examined, patient is status post Compartment pressure checks left calf, closed reduction with manipulation left tibial plateau, external fixation left leg 07/18/17-patient seen and examined, pain is currently well-controlled and no acute event overnight 07/19/17-patient seen and examined, she reports improvement of pain. Patient sitting in the chair. Tolerated by mouth well. 07/20/17-patient seen and examined, complains of pain to proximal left lower extremity. Also complains of nausea this morning 07/21/17-patient seen and examined, pain to left was treated to control. Denies any nausea today. 07/22/17-patient seen and examined, currently nothing by mouth pending surgery today. Complain of throbbing left lower extremity pain. 07/23/17-patient seen and examined, stable today and denies any significant left was treated pain. She is s/p Removal external fixation, open reduction internal fixation bicondylar left tibial plateau fracture 07/21/17 07/24/17-patient seen and examined, reports improvement of left was treated pain. Only complaints of nausea as well as constipation. Case was discussed with Dr. Peck physiatry, regarding possible discharge to inpatient rehabilitation 07/25/17-patient seen and examined, had one episode of vasovagal when having a bowel movement, otherwise stable now. Objective Vitals Vital Signs Date Time Temp Pulse Resp B/P (MAP) Pulse Ox O2 Delivery O2 Flow Rate FiO2 07/25/17 12:00 98.9 84 20 107/57 (74) 94 07/25/17 08:00 98.1 84 16 105/57 (73) 100 07/25/17 00:00 98.7 92 16 142/70 (94) 98 07/24/17 21:09 21 07/24/17 20:03 99.2 101 16 134/77 (96) 97 07/24/17 15:20 97.8 101 18 125/67 (86) 97 I/O 07/24/17 07/24/17 07/24/17 07/25/17 07/25/17 07/25/17 07:00 15:00 23:00 07:00 15:00 23:00 Intake Total 730 ml 750 ml 720 ml 720 ml Balance 730 ml 750 ml 720 ml 720 ml Intake Oral 480 ml 750 ml 720 ml 720 ml IV Total 250 ml # Voids 3 4 2 1 # Bowel Movements 0 0 Result Diagram: 07/23/17 0422 Objective Remarks GENERAL: NAD and sitting in a chair SKIN: Warm and dry. HEAD: Normocephalic. EYES: No scleral icterus. No injection or drainage. NECK: Supple, trachea midline. No JVD or lymphadenopathy. CARDIOVASCULAR: Regular rate and rhythm without murmurs, gallops, or rubs. RESPIRATORY: Breath sounds equal bilaterally. No accessory muscle use. GASTROINTESTINAL: Abdomen soft, non-tender, nondistended. MUSCULOSKELETAL: No cyanosis, or edema. brace over LLE-neurovascular intact BACK: Nontender without obvious deformity. No CVA tenderness. Procedures Compartment pressure checks left calf, closed reduction with manipulation left tibial plateau, external fixation left leg 07/17/17 Removal external fixation, open reduction internal fixation bicondylar left tibial plateau fracture 07/21/17 A/P Problem List: (1) Tibial plateau fracture, left ICD Code: S82.142A - Displaced bicondylar fracture of left tibia, initial encounter for closed fracture Status: Acute (2) Acute renal insufficiency ICD Code: N28.9 - Disorder of kidney and ureter, unspecified (3) Leukocytosis ICD Code: D72.829 - Elevated white blood cell count, unspecified Assessment and Plan 56-year-old female with Left tibial plateau fracture -Status post Compartment pressure checks left calf, closed reduction with manipulation left tibial plateau, external fixation left leg 07/17/17 -s/p Removal external fixation, open reduction internal fixation bicondylar left tibial plateau fracture 07/21/17 - Management per orthopedic surgery -PT to treat and eval -Pain management -Non weightbearing left lower extremity Acute renal insufficiency - Improved - avoid nephrotoxins Leukocytosis - suspect secondary to stress DVT prophylaxis - Lovenox Discharge Planning discharge to [facility] possible today 07/25/17 Problem Qualifiers (1) Tibial plateau fracture, left: Qualified Codes: S82.142A - Displaced bicondylar fracture of left tibia, initial encounter for closed fracture Dandre South MD Jul 25, 2017 13:14
[2017-08-06] MEDS ORDERED: WHEEMIS3 (08:14)
[2017-08-06] MEDS ORDERED: COMMODE 3-IN-11 MIS (08:14)
[2017-08-07] MEDS ORDERED: ACET1TAB86 PO (14:45)
[2017-08-07] MEDS ORDERED: HYDR-3583 PO (14:45)
[2017-08-07] MEDS ORDERED: PERI8.6T PO (14:45)
[2017-08-07] MEDS ORDERED: METH500T3 PO (14:45)
[2017-08-07] MEDS ORDERED: FERR325T20 PO (14:45)
[2017-08-07] MEDS ORDERED: PANT40TA3 PO (14:45)
== END 2017-07-25 16:30 | DRG 494 ==
LOC: NEPD 15:57 → NEDA 19:23 → N06A 21:42
PROVIDERS: ADMIT Family Medicine; ATTEND Hospitalist
PROC: 0QSH35Z Reposition Left Tibia with External Fixation Device, Percutaneous Approach (ICD-10-PCS; principal; 2017-07-17 09:23)
PROC: 0QSH04Z Reposition Left Tibia with Internal Fixation Device, Open Approach (ICD-10-PCS; 2017-07-22)
PROC: 0QPHX5Z Removal of External Fixation Device from Left Tibia, External Approach (ICD-10-PCS; 2017-07-22)
DX: S82.142A Displaced bicondylar fracture of left tibia, initial encounter for closed fracture (principal); E03.9 Hypothyroidism, unspecified; N28.9 Disorder of kidney and ureter, unspecified; W11.XXXA Fall on and from ladder, initial encounter; Y93.89 Activity, other specified; Y92.008 Other place in unspecified non-institutional (private) residence as the place of occurrence of the external cause; M25.522 Pain in left elbow; K59.00 Constipation, unspecified
CPT/HCPCS: 73070; 73200; 73560; 73590; 73620; 73700; 76000; 80048; 82652; 85014; 85018; 85025; 85610; 85730; 86850; 86900; 86901; 93005; 94150; C1713; J0690; J1100; J1580; J1650; J1885; J2175; J2250; J2270; J2370; J2405; J3010; J3370; J7030; J7050; J7120; L1830